=== PATIENT | female | born 1950 | race Caucasian/White ===

== ENCOUNTER → 2017-02-13 | Outpatient (CLI) | payer MEDICARE ==
[~2017-02-13] MED LIST: ALBU8.5H2 IH; ASPI81TA57 PO; CEFD300C3 PO; CEPH500C PO; DIAZ5TAB3 PO; ESCT10T PO; HYDR-1231 PO; HYDR-34 PO; HYDR-3583 PO; LEVO125T6 PO; LEVO137T24 PO; LVT.05T PO; MELO-195 PO; MIRA25TA PO; MULT-974 PO; OMEP20CA12 PO; QUET400T3 PO; QUET50TA43 PO; SIMV40TA4 PO; TRAM-21 PO; TRIA60LO6 TOP; levothroid PO
[2017-02-13 16:55] LABS: BILIRUBIN,URINE NEGATIVE (NEGATIVE); KETONES,URINE NEGATIVE (NEGATIVE); LEUKOCYTE ESTERASE ,URINE NEGATIVE (NEGATIVE); NITRITE,URINE NEGATIVE (NEGATIVE); PH,URINE 6.5 (5-9); PROTEIN,URINE NEGATIVE (NEGATIVE); UROBILINOGEN,URINE NORMAL (NORMAL)
[2017-02-13 17:03] LABS: SQUAMOUS EPITHELIAL CELL,UR 0-2 /HPF
== END ==
LOC: LABNPT 15:50
PROVIDERS: ATTEND Family Medicine
DX: N39.0 Urinary tract infection, site not specified (principal)
CPT/HCPCS: 81000; 87088

== ENCOUNTER 2017-03-04 17:54 | Emergency (ER) | payer MEDICARE ==
[~2017-03-04] VITALS: Ht 175.3 cm; Wt 88.5 kg
--- NOTE | 2017-03-04 18:13 | ED Fall/Injury ---
General Chief Complaint: Trauma-Non Activation Stated Complaint: FALL Source: EMS, custodial records, old records Exam Limitations: other (PT WITH DEMENTIA AND IS UNABLE TO GIVE ANY RELEVANT INFORMATION, BUT IS ABLE TO STATE IF SHE HURTS WHEN AN AREA IS PALPATED) History of Present Illness Time seen by provider: 17:55 Initial Comments PT ARRIVES VIA EMS FROM [facility]--NO REPORT FROM [facility] PT HAD AN UNWITNESSED FALL [facility] STAFF FOUND HER WITH SWELLING TO RIGHT CHEEK, AND PT WAS ALERT AND AT NORMAL BASELINE WHEN SHE WAS FOUND PT CURRENTLY HAVING DIARRHEA ON ARRIVAL NO REPORTED VOMITING NO OTHER INFORMATION IS OBTAINABLE PCP: DR. TEJEDA Allergies and Home Medications Allergies Coded Allergies: olanzapine (Verified Allergy, Unknown, 09/23/08) Home Medications Albuterol 8.5 Gm Hfa.aer.ad, 2 PUFF IH Q6H, #1 2 PUFFS Prescribed by: RAS VIDAL on 11/28/14 2335 Aspirin 81 Mg Tablet.dr, 81 MG PO DAILY, (Reported) Cefdinir 300 Mg Capsule, 1 EACH PO BID, #20 Prescribed by: RAS VIDAL on 11/28/14 2335 Cephalexin Monohydrate 500 Mg Capsule, 1 EACH PO TID, #21 Prescribed by: PERLA LUI on 08/22/14 1232 Diazepam 5 Mg Tablet, 5 MG PO TID, (Reported) Escitalopram Oxalate 10 Mg Tablet, 10 MG PO DAILY, (Reported) Meloxicam 15 Mg Tablet, 15 MG PO DAILY, (Reported) Mirabegron 25 Mg Tab.er.24h, 25 MG PO DAILY, #14 Prescribed by: DUDLEY SANTOS on 02/07/16 0419 Multivitamin 1 Each Tablet, 1 TAB PO DAILY, (Reported) Omeprazole 20 Mg Capsule.dr, 20 MG PO DAILY, (Reported) Quetiapine Fumarate 400 Mg Tab.sr.24h, 400 MG PO 1700, (Reported) Simvastatin 40 Mg Tablet, 40 MG PO HS, (Reported) Tramadol Hcl 50 Mg Tablet, 50 MG PO BID PRN for PAIN, (Reported) [levothroid] , 150 MCG PO DAILY, #30 Prescribed by: PERLA LUI on 08/22/14 1232 Constitutional: other (PER HPI) Past Hahedho-Epyvlu-Ujslwd Hx Patient Social History Alcohol Use: Denies Use Recreational Drug Use: No Smoking Status: Former Smoker Type Used: Cigarettes 2nd Hand Smoke Exposure: Yes (HER SMOKES, PT SMELLS OF SMOKE) Recent Hopitalizations: Yes (WRIST SURG) Immunizations Up To Date Date of Pneumonia Vaccine: Mar 04, 2014 Date of Influenza Vaccine: Apr 20, 2014 Seasonal Allergies Seasonal Allergies: No Surgeries HX Surgeries: Yes (HERNIA REPAIR) Surgeries: Abdominal Respiratory Hx Respiratory Disorders: Yes Respiratory Disorders: Chronic Bronchitis, COPD Cardiovascular Hx Cardiac Disorders: Yes Cardiac Disorders: High Cholesterol Neurological Hx Neurological Disorders: Yes (VASCULAR DEMENTIA) Neurological Disorders: Dementia, Developmental Disorder Reproductive System Hx Reproductive Disorders: No Sexually Transmitted Disease: No Genitourinary Hx Genitourinary Disorders: No Gastrointestinal Hx Gastrointestinal Disorders: Yes Gastrointestinal Disorders: Abdominal Hernia, Gastroesophageal Reflux, Chronic Constipation Musculoskeletal Hx Musculoskeletal Disorders: Yes (GENERALIZED WEAKNESS AND UNSTEADY GAIT) Musculoskeletal Disorders: Fractures Endocrine Hx Endocrine Disorders: Yes Endocrine Disorders: Hypothyroidsim HEENT HX ENT Disorders: No Cancer Hx Cancer: No Psychosocial Hx Psychiatric Problems: Yes (BIPOLAR, MENTALLY RETARDED) Behavioral Health Disorders: Sleep Difficulties, Bipolar, Depression Integumentary HX Skin/Integumentary Disorder: No Blood Transfusions Hx Blood Disorders: No Family Medical History Significant Family History: No Pertinent Family Hx Family Medial History: Patient reports no known family medical history. Physical Exam Vital Signs Vital Sign - Last 12Hours Capillary Refill : General Appearance: WD/WN, no apparent distress, other (APPEARS TO BE MENTALLY CHALLENGED WITH DEMENTIA) HEENT: PERRL/EOMI, other (POOR DENTITION; SWELLING, ERYTHEMA AND EARLY BRUSING , AND TENDERNESS TO RIGHT CHEEK) Neck: tender lateral, tender midline Cardiovascular: regular rate, rhythm, no murmur Respiratory: chest non-tender, normal breath sounds, no respiratory distress, no accessory muscle use Gastrointestinal: normal bowel sounds, non tender, soft, other (PT CURRENTLY WITH DIARRHEA) Extremities: normal capillary refill, swelling (TRACE EDEMA BILATERALLY), other (TENDERNESS TO BILATERAL HIPS AND THIGHS) Neurologic/Psychiatric: production line II-XII nml as tested, no motor/sensory deficits, alert, other (FLAT AFFECT. CONFUSED TO TIME, PLACE, SITUTATION, POOR MEMORY. APPEARS TO HAVE MR WITH DEMENTIA ) Skin: normal color, warm/dry Progress/Results/Core Measures Results/Orders Lab Results Laboratory Tests Test 03/04/17 19:34 Range/Units White Blood Count 9.7 4.3-11.0 10^3/uL Red Blood Count 4.35 4.35-5.85 10^6/uL Hemoglobin 13.1 11.5-16.0 G/DL Hematocrit 40 35-52 % Mean Corpuscular Volume 92 80-99 FL Mean Corpuscular Hemoglobin 30 25-34 PG Mean Corpuscular Hemoglobin Concent 33 32-36 G/DL Red Cell Distribution Width 13.8 10.0-14.5 % Platelet Count 286 130-400 10^3/uL Mean Platelet Volume 9.9 7.4-10.4 FL Neutrophils (%) (Auto) 70 42-75 % Lymphocytes (%) (Auto) 21 12-44 % Monocytes (%) (Auto) 8 0-12 % Eosinophils (%) (Auto) 2 0-10 % Basophils (%) (Auto) 0 0-10 % Neutrophils # (Auto) 6.8 1.8-7.8 X 10^3 Lymphocytes # (Auto) 2.0 1.0-4.0 X 10^3 Monocytes # (Auto) 0.8 0.0-1.0 X 10^3 Eosinophils # (Auto) 0.2 0.0-0.3 10^3/uL Basophils # (Auto) 0.0 0.0-0.1 10^3/uL Sodium Level 141 135-145 MMOL/L Potassium Level 3.4 L 3.6-5.0 MMOL/L Chloride Level 105 98-107 MMOL/L Carbon Dioxide Level 25 21-32 MMOL/L Anion Gap 11 5-14 MMOL/L Blood Urea Nitrogen 11 7-18 MG/DL Glucose Level 106 H 70-105 MG/DL Calcium Level 9.1 8.5-10.1 MG/DL Magnesium Level 1.9 1.8-2.4 MG/DL Total Bilirubin 0.3 0.1-1.0 MG/DL Aspartate Amino Transf (AST/SGOT) 14 5-34 U/L Alanine Aminotransferase (ALT/SGPT) 16 0-55 U/L Alkaline Phosphatase 116 40-136 U/L Total Protein 7.2 6.4-8.2 GM/DL Albumin 3.8 3.2-4.5 GM/DL My Orders Orders - RAS VIDAL DO Saline Lock/Iv-Start (03/04/17 18:05) Ct Head/Face/Cervical Wo (03/04/17 18:05) Ct Thoracic/Lumbar Spine Wo (03/04/17 18:05) Cbc With Automated Diff (03/04/17 18:05) Comprehensive Metabolic Panel (03/04/17 18:05) Magnesium (03/04/17 18:05) Thyroid Analyzer (03/04/17 18:05) Chest 1 View, Ap/Pa Only (03/04/17 18:05) Pelvis/Terence Hips 5> Views (03/04/17 18:05) Femur, Bilateral, 2 Views (03/04/17 18:05) Vital Signs/I&O Vital Sign - Last 12Hours 03/04/17 03/04/17 18:04 18:04 Pulse 86 78 Resp 14 14 B/P (MAP) 148/88 (108) 148/88 Pulse Ox 98 98 O2 Delivery Room Air Room Air Progress Note : Progress Note UNEVENTFUL ER STAY Diagnostic Imaging Comments CT HEAD/MAXILLOFACIAL/CERVICAL SPINE--NO ACUTE PROCESS, CHRONIC/DEGENERATIVE CHANGES CT THORACIC AND LUMBAR SPINE--NO ACUTE PROCESS, CHRONIC /DEGENERATIVE CHANGES PER RADIOLOGIST REPORTS @ 1917 XRAYS BILATERAL HIPS, FEMUR AND PELVIS--NO ACUTE PROCESS, PER RADIOLOGIST REPORTS @ 1947 Reviewed: Reviewed by Me Departure Impression Impression: Primary Impression: Status post fall Additional Impressions: RIGHT FACIAL CONTUSION Bilateral hip pain Cervical myofascial strain Disposition: 03 XFER SNF Condition: Stable Departure-Patient Inst. Referrals: ILA TEJEDA DO (PCP/Family) Primary Care Physician Patient Instructions: Cervical Muscle Strain (DC), Contusion (DC), Eye Contusion (DC), Hip Pain (DC), Hip Pain in Older People, Minor Head Injury (DC) , Preventing Falls in the Older Adult Add. Discharge Instructions: CONTINUE ALL MEDICATIONS PRESCRIBED ICE TO RIGHT CHEEK AT 20 MINUTE INTERVALS FOLLOW UP WITH DR. TEJEDA NEEDED All discharge instructions reviewed with patient and/or family. Voiced understanding. RAS VIDAL DO Mar 04, 2017 18:13
--- NOTE | 2017-03-04 18:40 | Diagnostic Imaging Report ---
PROCEDURE: CT head, face, and cervical spine without contrast. TECHNIQUE: Multiple contiguous axial images were obtained through the head, neck, and facial bones without the use of intravenous contrast. Sagittal and coronal reformations through the cervical spine and facial bones were also performed. INDICATION: Fall. Swelling on right cheek. COMPARISON: CT head without contrast 03/13/2016. FINDINGS: CT head and maxillofacial: No intracranial hemorrhage, mass effect, hydrocephalus or extra-axial fluid collections. No CT evidence of acute infarction. Moderate to advanced generalized cerebral and cerebellar parenchymal volume loss. Moderate leukoaraiosis. Intracranial vascular calcifications. No maxillofacial or skull fractures. The paranasal sinuses and mastoids are clear. Soft tissue edema overlying the right maxilla and zygoma. CT cervical spine: Normal alignment. Vertebral body heights are maintained. No fractures. No evidence of high-grade spinal canal narrowing on this noncontrast exam. Moderate degenerative endplate changes most marked at C4-C6. Carotid bifurcation arterial calcifications. Retropharyngeal course of the carotid arteries. IMPRESSION: No acute intracranial or cervical spine CT findings. No maxillofacial fractures. Dictated by: Dictated on workstation # [id number]
--- NOTE | 2017-03-04 19:13 | Diagnostic Imaging Report ---
EXAM: CT THORACIC/LUMBAR SPINE WO INDICATION: Fall. COMPARISON: CT thoracolumbar spine 08/13/2013. FINDINGS: Mild thoracolumbar scoliosis. Small cervical ribs at C7. There are 12 rib-bearing thoracic and 5 lumbar type vertebral bodies. Vertebral body heights are maintained. No fractures. Minimal scattered degenerative endplate changes. No evidence of substantial spinal canal narrowing on this noncontrast exam. No substantial neural foraminal narrowing. Scattered benign bone islands. No suspicious lytic or osteoblastic lesions. Scattered arterial calcifications including a normal caliber abdominal aorta. IMPRESSION: No significant change. No acute CT findings in the thoracolumbar spine. Dictated by: Dictated on workstation # [id number]
--- NOTE | 2017-03-04 19:17 | Diagnostic Imaging Report ---
EXAM: CHEST 1 VIEW, AP/PA ONLY INDICATION: Fall. COMPARISON: Chest radiograph 11/28/2014. FINDINGS: No significant change. Normal heart size and pulmonary vascularity. No focal pulmonary opacity, pleural effusion or pneumothorax. No acute osseous findings. IMPRESSION: No acute cardiopulmonary findings. Dictated by: Dictated on workstation # [id number]
--- NOTE | 2017-03-04 19:19 | Diagnostic Imaging Report ---
EXAM: PELVIS/PETE HIPS 5> VIEWS INDICATION: Fall. Bilateral femur and hip pain. COMPARISON: None. FINDINGS: No fracture or malalignment. No substantial degenerative changes. Soft tissue shadows are unremarkable. Nonspecific bowel gas pattern in the abdomen. IMPRESSION: No acute radiographic findings in the pelvis or hips. Dictated by: Dictated on workstation # [id number]
--- NOTE | 2017-03-04 19:21 | Diagnostic Imaging Report ---
EXAM: FEMUR, BILATERAL, 2 VIEWS INDICATION: Bilateral femur and hip pain. Fall. COMPARISON: None. FINDINGS: No fracture or malalignment. Soft tissue shadows are unremarkable. Moderate degenerative changes in both knees. IMPRESSION: No acute radiographic findings in the femurs. Dictated by: Dictated on workstation # [id number]
[2017-03-04 19:43] LABS: BASOPHILS % (AUTO) 0 % (0-10); EOSINOPHILS # (AUTO) 0.2 10^3/uL (0.0-0.3); EOSINOPHILS % (AUTO) 2 % (0-10); LYMPHOCYTES % (AUTO) 21 % (12-44); MEAN CORPUSCULAR HEMOGLOBIN 30 PG (25-34); MEAN CORPUSCULAR HGB CONC 33 G/DL (32-36); MEAN CORPUSCULAR VOLUME 92 FL (80-99); MEAN PLATELET VOLUME 9.9 FL (7.4-10.4); MONOCYTES # (AUTO) 0.8 X 10^3 (0.0-1.0); MONOCYTES % (AUTO) 8 % (0-12); NEUTROPHILS # (AUTO) 6.8 X 10^3 (1.8-7.8); NEUTROPHILS % (AUTO) 70 % (42-75); PLATELET COUNT 286 10^3/uL (130-400); RED BLOOD COUNT 4.35 10^6/uL (4.35-5.85); RED CELL DISTRIBUTION WIDTH 13.8 % (10.0-14.5); WHITE BLOOD COUNT 9.7 10^3/uL (4.3-11.0)
[2017-03-04 20:04] LABS: ALANINE AMINOTRANSFERASE 16 U/L (0-55); ALBUMIN 3.8 GM/DL (3.2-4.5); ANION GAP 11 MMOL/L (5-14); ASPARTATE AMINO TRANSFERASE 14 U/L (5-34); BILIRUBIN,TOTAL 0.3 MG/DL (0.1-1.0); BLOOD UREA NITROGEN 11 MG/DL (7-18); CALCIUM 9.1 MG/DL (8.5-10.1); CARBON DIOXIDE 25 MMOL/L (21-32); CHLORIDE 105 MMOL/L (98-107); GLUCOSE 106 MG/DL (70-105); MAGNESIUM 1.9 MG/DL (1.8-2.4); POTASSIUM 3.4 MMOL/L (3.6-5.0); SODIUM 141 MMOL/L (135-145); TOTAL PROTEIN 7.2 GM/DL (6.4-8.2)
[2017-03-04 20:34] LABS: BUN/CREATININE RATIO 13; CREATININE SERUM 0.84 MG/DL (0.60-1.30); GFR ESTIMATED > 60
[2017-03-04 21:11] VITALS: BP 148/88
== END 2017-03-04 21:00 ==
LOC: EDUNIT# 17:54 → ER 17:55
DX: S00.83XA Contusion of other part of head, initial encounter (principal); S16.1XXA Strain of muscle, fascia and tendon at neck level, initial encounter; M25.552 Pain in left hip; M25.551 Pain in right hip; J44.9 Chronic obstructive pulmonary disease, unspecified; F03.90 Unspecified dementia, unspecified severity, without behavioral disturbance, psychotic disturbance, mood disturbance, and anxiety; E78.00 Pure hypercholesterolemia, unspecified; K59.09 Other constipation; E03.9 Hypothyroidism, unspecified; F31.9 Bipolar disorder, unspecified; G47.9 Sleep disorder, unspecified; Z79.82 Long term (current) use of aspirin; Z87.891 Personal history of nicotine dependence; W19.XXXA Unspecified fall, initial encounter
CPT/HCPCS: 36415; 70450; 70486; 71010; 72125; 72128; 72131; 73523; 80053; 83735; 84439; 84443; 85025; 99283

== ENCOUNTER 2017-04-18 00:02 | Inpatient (IN) | payer MEDICARE ==
[2017-04-18] VITALS (22 sets, daily range): BP systolic 77–170; BP diastolic 45–93
[~2017-04-18] VITALS: Ht 162.6 cm; Wt 105.2 kg
[2017-04-18 00:26] LABS: BASOPHILS % (AUTO) 0 % (0-10); EOSINOPHILS # (AUTO) 0.2 10^3/uL (0.0-0.3); EOSINOPHILS % (AUTO) 2 % (0-10); LYMPHOCYTES # (AUTO) 2.1 X 10^3 (1.0-4.0); LYMPHOCYTES % (AUTO) 22 % (12-44); MEAN CORPUSCULAR HEMOGLOBIN 30 PG (25-34); MEAN CORPUSCULAR HGB CONC 33 G/DL (32-36); MEAN CORPUSCULAR VOLUME 93 FL (80-99); MEAN PLATELET VOLUME 10.3 FL (7.4-10.4); MONOCYTES # (AUTO) 0.5 X 10^3 (0.0-1.0); MONOCYTES % (AUTO) 5 % (0-12); NEUTROPHILS % (AUTO) 71 % (42-75); PLATELET COUNT 217 10^3/uL (130-400); RED CELL DISTRIBUTION WIDTH 13.5 % (10.0-14.5); WHITE BLOOD COUNT 9.9 10^3/uL (4.3-11.0)
--- NOTE | 2017-04-18 00:27 | ED Respiratory ---
General Chief Complaint: Respiratory Problems Stated Complaint: SOA Source: patient Exam Limitations: no limitations History of Present Illness Time seen by provider: 00:07 Initial Comments Here with report of respiratory difficulty at the long term. Her primary care doctor was contacted and requested transfer to the ER for further evaluation. There is concerns of pneumonia. Patient does not answer questions well and is a very poor historian. She arrives with breathing treatment in progress. Apparently initial O2 sat was in the mid 80s which did improve with higher flow oxygen and a DuoNeb. Report of recent fever and difficulty breathing. Patient denies any complaints although is clearly in respiratory distress and confused. Timing/Duration: this morning Severity: moderate Modifying Factors: Improves With Albuterol Nebulizer, Improves With Oxygen Associated Symptoms: fever/chills, shortness of breath, wheezing Allergies and Home Medications Allergies Coded Allergies: olanzapine (Verified Allergy, Unknown, 09/23/08) Home Medications Albuterol 8.5 Gm Hfa.aer.ad, 2 PUFF IH Q6H, #1 2 PUFFS Prescribed by: RAS VIDAL on 11/28/14 2335 Aspirin 81 Mg Tablet.dr, 81 MG PO DAILY, (Reported) Cefdinir 300 Mg Capsule, 1 EACH PO BID, #20 Prescribed by: RAS VIDAL on 11/28/14 2335 Cephalexin Monohydrate 500 Mg Capsule, 1 EACH PO TID, #21 Prescribed by: PERLA LUI on 08/22/14 1232 Diazepam 5 Mg Tablet, 5 MG PO TID, (Reported) Escitalopram Oxalate 10 Mg Tablet, 10 MG PO DAILY, (Reported) Meloxicam 15 Mg Tablet, 15 MG PO DAILY, (Reported) Mirabegron 25 Mg Tab.er.24h, 25 MG PO DAILY, #14 Prescribed by: DUDLEY SANTOS on 02/07/16 0419 Multivitamin 1 Each Tablet, 1 TAB PO DAILY, (Reported) Omeprazole 20 Mg Capsule.dr, 20 MG PO DAILY, (Reported) Quetiapine Fumarate 400 Mg Tab.sr.24h, 400 MG PO 1700, (Reported) Simvastatin 40 Mg Tablet, 40 MG PO HS, (Reported) Tramadol Hcl 50 Mg Tablet, 50 MG PO BID PRN for PAIN, (Reported) [levothroid] , 150 MCG PO DAILY, #30 Prescribed by: PERLA LUI on 08/22/14 1232 Constitutional: see HPI, fever Respiratory: see HPI, short of breath, wheezing Other Unable to complete review of systems due to patient's underlying mental status and clinical condition. Past Ozslkzw-Vnpmmp-Gmohjk Hx Patient Social History Alcohol Use: Denies Use Recreational Drug Use: No Smoking Status: Former Smoker Type Used: Cigarettes 2nd Hand Smoke Exposure: No Recent Hopitalizations: Yes (WRIST SURG) Immunizations Up To Date Date of Pneumonia Vaccine: Mar 04, 2014 Date of Influenza Vaccine: Apr 20, 2014 Seasonal Allergies Seasonal Allergies: No Surgeries History of Surgeries: Yes (HERNIA REPAIR) Surgeries: Abdominal Respiratory History of Respiratory Disorde: Yes Respiratory Disorders: Chronic Bronchitis, COPD Cardiovascular History of Cardiac Disorders: Yes Cardiac Disorders: High Cholesterol Neurological History of Neurological Disord: Yes Neurological Disorders: Dementia, Developmental Disorder Reproductive System Hx Reproductive Disorders: No Sexually Transmitted Disease: No Gastrointestinal History of Gastrointestinal Di: Yes Gastrointestinal Disorders: Abdominal Hernia, Gastroesophageal Reflux, Chronic Constipation Musculoskeletal History of Musculoskeletal Dis: Yes Musculoskeletal Disorders: Fractures Endocrine History of Endocrine Disorders: Yes Endocrine Disorders: Hypothyroidsim Cancer History of Cancer: No Psychosocial History of Psychiatric Problem: Yes (BIPOLAR, MENTALLY RETARDED) Behavioral Health Disorders: Sleep Difficulties, Bipolar, Depression Integumentary History of Skin or Integumenta: No Blood Transfusions History of Blood Disorders: No Reviewed Nursing Assessment Reviewed/Agree w Nursing PMH: Yes Family Medical History Significant Family History: No Pertinent Family Hx Family Medial History: Patient reports no known family medical history. Physical Exam Vital Signs Vital Sign - Last 12Hours 04/18/17 00:03 Temp 99.3 Pulse 83 Resp 20 B/P (MAP) 135/87 Pulse Ox 97 O2 Delivery Nasal Cannula O2 Flow Rate 2.00 Capillary Refill : General Appearance: WD/WN, mild distress (respiratory) HEENT: PERRL/EOMI, pharynx normal Neck: full range of motion, supple Respiratory: decreased breath sounds, crackles, wheezing, expiration Cardiovascular: regular rate, rhythm, no murmur Gastrointestinal: non tender, soft Extremities: non-tender, normal inspection Neurologic/Psychiatric: alert, disoriented x 3 Skin: normal color, warm/dry Focused Exam Evaluation Lactate Level Laboratory Tests 04/18/17 00:13: Lactic Acid Level 1.08 Lactic Acid Level Laboratory Tests Test 04/18/17 00:13 Lactic Acid Level 1.08 MMOL/L (0.50-2.00) Progress/Results/Core Measures Results/Orders Lab Results Laboratory Tests Test 04/18/17 00:13 04/18/17 00:41 Range/Units White Blood Count 9.9 4.3-11.0 10^3/uL Red Blood Count 4.60 4.35-5.85 10^6/uL Hemoglobin 13.9 11.5-16.0 G/DL Hematocrit 43 35-52 % Mean Corpuscular Volume 93 80-99 FL Mean Corpuscular Hemoglobin 30 25-34 PG Mean Corpuscular Hemoglobin Concent 33 32-36 G/DL Red Cell Distribution Width 13.5 10.0-14.5 % Platelet Count 217 130-400 10^3/uL Mean Platelet Volume 10.3 7.4-10.4 FL Neutrophils (%) (Auto) 71 42-75 % Lymphocytes (%) (Auto) 22 12-44 % Monocytes (%) (Auto) 5 0-12 % Eosinophils (%) (Auto) 2 0-10 % Basophils (%) (Auto) 0 0-10 % Neutrophils # (Auto) 7.0 1.8-7.8 X 10^3 Lymphocytes # (Auto) 2.1 1.0-4.0 X 10^3 Monocytes # (Auto) 0.5 0.0-1.0 X 10^3 Eosinophils # (Auto) 0.2 0.0-0.3 10^3/uL Basophils # (Auto) 0.0 0.0-0.1 10^3/uL Prothrombin Time 12.7 12.2-14.7 SEC INR Comment 0.9 0.8-1.4 Activated Partial Thromboplast Time 26 24-35 SEC Sodium Level 142 135-145 MMOL/L Potassium Level 4.0 3.6-5.0 MMOL/L Chloride Level 107 98-107 MMOL/L Carbon Dioxide Level 21 21-32 MMOL/L Anion Gap 14 5-14 MMOL/L Blood Urea Nitrogen 9 7-18 MG/DL Creatinine 0.87 0.60-1.30 MG/DL Estimat Glomerular Filtration Rate > 60 BUN/Creatinine Ratio 10 Glucose Level 128 H 70-105 MG/DL Lactic Acid Level 1.08 0.50-2.00 MMOL/L Calcium Level 9.4 8.5-10.1 MG/DL Total Bilirubin 0.5 0.1-1.0 MG/DL Aspartate Amino Transf (AST/SGOT) 22 5-34 U/L Alanine Aminotransferase (ALT/SGPT) 15 0-55 U/L Alkaline Phosphatase 79 40-136 U/L Total Protein 7.9 6.4-8.2 GM/DL Albumin 4.0 3.2-4.5 GM/DL Urine Color YELLOW Urine Clarity CLEAR Urine pH 6 5-9 Urine Specific [place] 1.015 L 1.016-1.022 Urine Protein NEGATIVE NEGATIVE Urine Glucose (UA) NEGATIVE NEGATIVE Urine Ketones NEGATIVE NEGATIVE Urine Nitrite NEGATIVE NEGATIVE Urine Bilirubin NEGATIVE NEGATIVE Urine Urobilinogen NORMAL NORMAL MG/DL Urine Leukocyte Esterase NEGATIVE NEGATIVE Urine RBC (Auto) NEGATIVE NEGATIVE Urine RBC NONE /HPF Urine WBC NONE /HPF Urine Squamous Epithelial Cells 0-2 /HPF Urine Crystals NONE /LPF Urine Bacteria NEGATIVE /HPF Urine Casts NONE /LPF Urine Mucus NEGATIVE /LPF Urine Culture Indicated NO My Orders Orders - EVER RANDLE MD Cbc With Automated Diff (04/18/17 00:20) Comprehensive Metabolic Panel (04/18/17 00:20) Lactic Acid Analyzer (04/18/17 00:20) Blood Culture (04/18/17 00:20) Sputum Culture (04/18/17 00:20) Ua Culture If Indicated (04/18/17 00:20) Protime With Inr (04/18/17 00:20) Partial Thromboplastin Time (04/18/17 00:20) Chest 1 View, Ap/Pa Only (04/18/17 00:20) O2 (04/18/17 00:20) Saline Lock/Iv-Start (04/18/17 00:20) Ekg Tracing (04/18/17 00:20) Vital Signs Adult Sepsis Patie Q1HR (04/18/17 00:20) Remove Rings In Anticipation O (04/18/17 00:20) Methylprednisolone Sod Succ (Solu-Medrol (04/18/17 01:42) Levofloxacin 750 Mg/150 Ml Iv (Levaquin (04/18/17 01:42) Vital Signs/I&O Vital Sign - Last 12Hours 04/18/17 04/18/17 00:03 00:08 Temp 99.3 Pulse 83 Resp 20 B/P (MAP) 135/87 Pulse Ox 97 97 O2 Delivery Nasal Cannula Nasal Cannula O2 Flow Rate 2.00 2.00 Progress Note : Progress Note Seen and evaluated. IV, labs, EKG and chest x-ray ordered. 02 continued. Patient did pull her IV after arrival from EMS. IV restarted. Blood cultures and lactic acid obtained. Monitor patient. 0200: Labs reviewed and chest x- ray reviewed. Question of right basilar infiltrate. Given the patient's baseline status and acute worsening tonight, patient would benefit from inpatient admission for IV antibiotics and monitoring. This was discussed with Dr. Tejeda who agrees. Patient to be admitted inpatient status. ECG Initial ECG Impression Date: Apr 18, 2017 Initial ECG Impression Time: 00:11 Initial ECG Rate: 84 Initial ECG Rhythm: Normal Sinus Comment Sinus rhythm with left ventricular hypertrophy. Left axis deviation. LVH and left axis deviation from 08/19/14. No evidence of ST elevation WI. Interpreted by me. Diagnostic Imaging Diagonstic Imaging: Xray Plain Films/CT/US/NM/MRI: chest Comments Right basilar infiltrate Reviewed: Reviewed by Me (a thyroid thank you) Departure Communication (Admissions) Time/Spoke to Admitting Phy: 02:00 Impression Impression: Primary Impression: Right lower lobe pneumonia Qualified Codes: J18.1 - Lobar pneumonia, unspecified organism Disposition: ADMITTED INPATIENT Condition: Stable Admissions Decision to Admit Reason: Admit from ER (General) Decision to Admit/Date: Apr 18, 2017 Time/Decision to Admit Time: 02:00 Departure-Patient Inst. Referrals: ILA TEJEDA DO (PCP/Family) Primary Care Physician EVER RANDLE MD Apr 18, 2017 00:27
[2017-04-18 00:31] LABS: INR 0.9 (0.8-1.4); PROTHROMBIN TIME PATIENT 12.7 SEC (12.2-14.7)
[2017-04-18 00:39] LABS: ALANINE AMINOTRANSFERASE 15 U/L (0-55); ANION GAP 14 MMOL/L (5-14); ASPARTATE AMINO TRANSFERASE 22 U/L (5-34); BILIRUBIN,TOTAL 0.5 MG/DL (0.1-1.0); BLOOD UREA NITROGEN 9 MG/DL (7-18); BUN/CREATININE RATIO 10; CALCIUM 9.4 MG/DL (8.5-10.1); CARBON DIOXIDE 21 MMOL/L (21-32); CHLORIDE 107 MMOL/L (98-107); CREATININE SERUM 0.87 MG/DL (0.60-1.30); GFR ESTIMATED > 60; GLUCOSE 128 MG/DL (70-105); SODIUM 142 MMOL/L (135-145); TOTAL PROTEIN 7.9 GM/DL (6.4-8.2)
[2017-04-18 00:49] LABS: BILIRUBIN,URINE NEGATIVE (NEGATIVE); KETONES,URINE NEGATIVE (NEGATIVE); LEUKOCYTE ESTERASE ,URINE NEGATIVE (NEGATIVE); NITRITE,URINE NEGATIVE (NEGATIVE); PH,URINE 6 (5-9); PROTEIN,URINE NEGATIVE (NEGATIVE); UROBILINOGEN,URINE NORMAL (NORMAL)
[2017-04-18 01:29] LABS: SQUAMOUS EPITHELIAL CELL,UR 0-2 /HPF
[2017-04-18] MEDS ORDERED: LEVOFLOXACIN 750 MG/150 ML IV 150 ML IV STA (01:42)
[2017-04-18] MEDS ORDERED: methylPREDNISolone 125 MG (Solu-MEDROL) VIAL IV STA (01:42)
[2017-04-18] MEDS ORDERED: NS IV 1000 ML 1,000 ML ONE (03:03)
[2017-04-18] MEDS ORDERED: RT-ALBUTEROL/IPRATROPIUM 3 ML (DUONEB) VIAL INH PRN (04:00)
[2017-04-18] MEDS: CEFEPIME INJECTION 2,000 MG in NS (IVPB) 50 ML IV SCH ×2 (04:40→09:09)
--- NOTE | 2017-04-18 06:25 | Diagnostic Imaging Report ---
INDICATION: Fall. Comparison is made to the examination of 03/04/2017. FINDINGS: Heart size and pulmonary vascularity are within normal limits. There is suggestion of an approximately 1.5 cm nodular structure along the superior margin of the left hilum. This was not definitely seen on the previous study. There is no evidence of pneumothorax or consolidation. IMPRESSION: 1.5 cm nodular density in the left suprahilar region could be due to superimposed vascular structures, although followup PA and lateral views of the chest would be useful to exclude pulmonary nodule. Dictated by: Dictated on workstation # [id number]
[2017-04-18 06:41] LABS: BASOPHILS % (AUTO) 0 % (0-10); EOSINOPHILS % (AUTO) 0 % (0-10); LYMPHOCYTES # (AUTO) 0.6 X 10^3 (1.0-4.0); LYMPHOCYTES % (AUTO) 4 % (12-44); MEAN CORPUSCULAR HEMOGLOBIN 30 PG (25-34); MEAN CORPUSCULAR HGB CONC 32 G/DL (32-36); MEAN CORPUSCULAR VOLUME 93 FL (80-99); MEAN PLATELET VOLUME 10.4 FL (7.4-10.4); MONOCYTES # (AUTO) 0.2 X 10^3 (0.0-1.0); MONOCYTES % (AUTO) 1 % (0-12); NEUTROPHILS % (AUTO) 95 % (42-75); PLATELET COUNT 218 10^3/uL (130-400); RED BLOOD COUNT 4.58 10^6/uL (4.35-5.85); RED CELL DISTRIBUTION WIDTH 13.2 % (10.0-14.5); WHITE BLOOD COUNT 15.7 10^3/uL (4.3-11.0)
[2017-04-18 07:02] LABS: ALANINE AMINOTRANSFERASE 13 U/L (0-55); ANION GAP 14 MMOL/L (5-14); ASPARTATE AMINO TRANSFERASE 13 U/L (5-34); BILIRUBIN,TOTAL 0.6 MG/DL (0.1-1.0); BLOOD UREA NITROGEN 8 MG/DL (7-18); BUN/CREATININE RATIO 10; CALCIUM 9.2 MG/DL (8.5-10.1); CARBON DIOXIDE 20 MMOL/L (21-32); CHLORIDE 107 MMOL/L (98-107); GFR ESTIMATED > 60; GLUCOSE 147 MG/DL (70-105); POTASSIUM 3.5 MMOL/L (3.6-5.0); SODIUM 141 MMOL/L (135-145); TOTAL PROTEIN 7.5 GM/DL (6.4-8.2)
[2017-04-18] MEDS ORDERED: FUROSEMIDE 40 MG/4 ML INJ (LASIX) ONE (07:24)
[2017-04-18 07:43] LABS: ABG BASE EXCESS -2.4 MMOL/L (-2.5-2.5); ABG HCO3 23 MMOL/L (23-27); ABG OXYGEN SATURATION 92 % (94-100); ABG PCO2 54 MMHG (35-45); ABG PO2 75 MMHG (79-93)
[2017-04-18] MEDS ORDERED: FUROSEMIDE 40 MG/4 ML INJ (LASIX) IVP NR (07:45)
[2017-04-18 07:46] LABS: ABG PH 7.27 (7.37-7.43)
[2017-04-18 07:47] LABS: ALLENS TEST YES-POS
--- NOTE | 2017-04-18 07:52 | Pulmonary Consultation ---
History of Present Illness History of Present Illness Date of Consultation 04/18/17 07:49 Time Seen by Provider: 07:52 Date of Admission History of Present Illness 66yo poor historian presented to ED from [facility] secondary to progressive SOB and hypoxia. No prior episodes like this. Pt was admitted to 4th floor and throughout the night she became more SOB and course rhonchi. I was called to room stat secondary to acute worsening SOB. Allergies and Home Medications Allergies Coded Allergies: olanzapine (Verified Allergy, Unknown, 09/23/08) Home Medications Cholecalciferol (Vitamin D3) 1,000 Unit Capsule, 2,000 UNIT PO DAILY, (Reported) TAKES 2 (1000 UNIT) CAPSULES Clonazepam 0.5 Mg Tablet, 0.5 MG PO TID, (Reported) Escitalopram Oxalate 10 Mg Tablet, 10 MG PO DAILY, (Reported) Lactulose 20 Gm/30 Ml Solution, 30 ML PO BID, (Reported) Levothyroxine Sodium 150 Mcg Tablet, 150 MCG PO DAILY, (Reported) Lurasidone HCl 40 Mg Tablet, 40 MG PO BID, (Reported) Magnesium Hydroxide 400 Mg/5 Ml Oral.susp, 30 ML PO DAILY PRN for CONSTIPATION- 7TH LINE, (Reported) Melatonin 3 Mg Tablet, 3 MG PO HS, (Reported) Memantine HCl 5 Mg Tablet, 5 MG PO BID, (Reported) Rivastigmine 4.6 Mg Patch, 4.6 MG TD DAILY, (Reported) Simvastatin 40 Mg Tablet, 40 MG PO 1700, (Reported) Topiramate 100 Mg Tablet, 100 MG PO BID, (Reported) Trazodone HCl 50 Mg Tablet, 50 MG PO HS, (Reported) Past Pndcitr-Alzmzy-Gblmlk Hx Patient Social History Alcohol Use: Denies Use Recreational Drug Use: No Smoking Status: Former Smoker Type Used: Cigarettes 2nd Hand Smoke Exposure: No Recent Foreign Travel: No Contact w/Someone Who Travel: No Recent Infectious Disease Expo: No Recent Hopitalizations: Yes (WRIST SURG) Physical Abuse: No Sexual Abuse: No Mistreated: No Fear: No Immunizations Up To Date PED Vaccines UTD: Yes Date of Pneumonia Vaccine: Feb 02, 2014 Date of Influenza Vaccine: Apr 20, 2014 Seasonal Allergies Seasonal Allergies: No Surgeries History of Surgeries: Yes (HERNIA REPAIR) Surgeries: Abdominal Respiratory History of Respiratory Disorde: Yes Respiratory Disorders: Chronic Bronchitis, COPD Cardiovascular History of Cardiac Disorders: No Cardiac Disorders: High Cholesterol Neurological History of Neurological Disord: Yes Neurological Disorders: Dementia, Developmental Disorder Reproductive System : No Hx Reproductive Disorders: No Sexually Transmitted Disease: No HIV/AIDS: No Genitourinary History of Genitourinary Disor: No Gastrointestinal History of Gastrointestinal Di: Yes Gastrointestinal Disorders: Abdominal Hernia, Gastroesophageal Reflux, Chronic Constipation Musculoskeletal History of Musculoskeletal Dis: Yes Musculoskeletal Disorders: Fractures Endocrine History of Endocrine Disorders: Yes Endocrine Disorders: Hypothyroidsim HEENT History of HEENT Disorders: No Cancer History of Cancer: No Psychosocial History of Psychiatric Problem: Yes (BIPOLAR, MENTALLY RETARDED) Behavioral Health Disorders: Sleep Difficulties, Bipolar, Depression Suicide Risk Score: 0 Integumentary History of Skin or Integumenta: No Blood Transfusions History of Blood Disorders: No Adverse Reaction to a Blood Tr: No Reviewed Nursing Assessment Reviewed/Agree w Nursing PMH: Yes Family Medical History Significant Family History: No Pertinent Family Hx Family Medial History: Patient reports no known family medical history. Review of Systems Time Seen by Provider: 07:49 Exam Exam Vital Signs Date Time Temp Pulse Resp B/P (MAP) Pulse Ox O2 Delivery O2 Flow Rate FiO2 04/18/17 06:29 92 Nasal Cannula 2.00 04/18/17 04:34 98.8 04/18/17 03:49 97 04/18/17 03:46 83 97 2 04/18/17 03:22 Nasal Cannula 2.00 04/18/17 03:00 99.4 81 20 131/63 93 2.00 04/18/17 02:49 82 20 94 Nasal Cannula 2.00 04/18/17 00:08 97 Nasal Cannula 2.00 04/18/17 00:03 99.3 83 20 135/87 97 Nasal Cannula 2.00 General Appearance: Anxious, Severe Distress HEENT: PERRL/EOMI, Pharynx Normal Neck: Full Range of Motion, Normal Inspection, Non Tender, Supple Respiratory: Accessory Muscle Use, Decreased Breath Sounds, Rhonci Cardiovascular: No Gallop, No JVD, Tachycardia Capillary Refill: Less Than 3 Seconds Gastrointestinal: normal bowel sounds, non tender, soft Extremity: Normal Capillary Refill, Normal Inspection Neurologic/Psychiatric: Alert, Oriented x3 Skin: Normal Color, Warm/Dry Lymphatic: No Adenopathy Results Lab Laboratory Tests 04/18/17 00:13 04/18/17 05:50 Assessment/Plan Assessment/Plan -Acute respiratory failure with probable flash pulmonary edema -BiPAP -stat ABG check troponins, EKG -transfer to ICU -BNP -lasix 40 mg IV X 1 255 Clinical Quality Measures DVT/VTE Risk/Contraindication: Risk Factor Score Per Nursin RFS Level Per Nursing on Admit: 4+=Very High SAI GUAMAN DO Apr 18, 2017 07:52
[2017-04-18] MEDS ORDERED: POTASSIUM CL 10MEQ/50ML IVPB 50 ML IV NR (08:15)
--- NOTE | 2017-04-18 08:16 | History & Physicial ---
History of Present Illness History of Present Illness Reason for visit/HPI [facility]. Patient had sudden problem of breathing. Pulse ox 1 into the 80s. Patient transferred to emergency room. Patient appears to have pneumonia. Seen patient this morning respiratory distress. Patient given Lasix and transferred to intensive care unit and pulmonology consult. Patient has dementia and unable to give a history Patient also has psychiatric problems Date of Admission Apr 18, 2017 at 02:00 Time Seen by Provider: 08:10 I consulted on this patient on 04/18/17 08:12 Attending Physician Ila Tejeda DO Admitting Physician Ila Tejeda DO Consult Allergies and Home Medications Allergies Coded Allergies: olanzapine (Verified Allergy, Unknown, 09/23/08) Home Medications Albuterol 8.5 Gm Hfa.aer.ad, 2 PUFF IH Q6H, #1 2 PUFFS Prescribed by: RAS VIDAL on 11/28/14 2335 Aspirin 81 Mg Tablet.dr, 81 MG PO DAILY, (Reported) Cefdinir 300 Mg Capsule, 1 EACH PO BID, #20 Prescribed by: RAS VIDAL on 11/28/14 2335 Cephalexin Monohydrate 500 Mg Capsule, 1 EACH PO TID, #21 Prescribed by: PERLA LUI on 08/22/14 1232 Diazepam 5 Mg Tablet, 5 MG PO TID, (Reported) Escitalopram Oxalate 10 Mg Tablet, 10 MG PO DAILY, (Reported) Meloxicam 15 Mg Tablet, 15 MG PO DAILY, (Reported) Mirabegron 25 Mg Tab.er.24h, 25 MG PO DAILY, #14 Prescribed by: DUDLEY SANTOS on 02/07/16 0419 Multivitamin 1 Each Tablet, 1 TAB PO DAILY, (Reported) Omeprazole 20 Mg Capsule.dr, 20 MG PO DAILY, (Reported) Quetiapine Fumarate 400 Mg Tab.sr.24h, 400 MG PO 1700, (Reported) Simvastatin 40 Mg Tablet, 40 MG PO HS, (Reported) Tramadol Hcl 50 Mg Tablet, 50 MG PO BID PRN for PAIN, (Reported) [levothroid] , 150 MCG PO DAILY, #30 Prescribed by: PERLA LUI on 08/22/14 1232 Past Valzhjz-Kmvqsr-Zexeyw Hx Patient Social History Marrital Status: Employed/Student: unemployed Alcohol Use: Denies Use Recreational Drug Use: No Smoking Status: Former Smoker Type Used: Cigarettes 2nd Hand Smoke Exposure: No Physical Abuse Screen: No Sexual Abuse: No Recent Foreign Travel: No Contact w/other who traveled: No Recent Hopitalizations: Yes (WRIST SURG) Recent Infectious Disease Expo: No Immunizations Up To Date Pediatric: Yes Date of Pneumonia Vaccine: Feb 02, 2014 Date of Influenza Vaccine: Apr 20, 2014 Seasonal Allergies Seasonal Allergies: No Surgeries Yes (HERNIA REPAIR) Abdominal Respiratory Yes Cardiovascular No High Cholesterol Neurological Yes Dementia, Developmental Disorder Reproductive System : No Hx Reproductive Disorders: No Sexually Transmitted Disease: No HIV/AIDS: No Genitourinary No Gastrointestinal Yes Abdominal Hernia, Gastroesophageal Reflux, Chronic Constipation Musculoskeletal Yes Fractures Endocrine History of Endocrine Disorders: Yes Endocrine Disorders: Hypothyroidsim HEENT History of HEENT Disorders: No Cancer No Psychosocial History of Psychiatric Problem: Yes (BIPOLAR, MENTALLY RETARDED) Behavioral Health Disorders: Sleep Difficulties, Bipolar, Depression Integumentary History of Skin or Integumenta: No Blood Transfusions History of Blood Disorders: No Adverse Reaction to a Blood Tr: No Reviewed Nursing Assessment Reviewed/Agree w Nursing PMH: Yes Family Medical History Significant Family History: No Pertinent Family Hx Other Significan Family Hx: PT UNABLE TO REPORT ANY FAMILY HISTORY Family Hx: Patient reports no known family medical history. Constitutional: other (order breath) EENTM: no symptoms reported Respiratory: short of breath, wheezing Cardiovascular: no symptoms reported Gastrointestinal: no symptoms reported Physical Exam Vital Signs Vital Sign - Last 12Hours 04/18/17 04/18/17 00:03 03:46 Temp 99.3 Pulse 83 Resp 20 B/P (MAP) 135/87 Pulse Ox 97 O2 Delivery Nasal Cannula O2 Flow Rate 2.00 FiO2 2 Capillary Refill : Less Than 3 Seconds General Appearance: Moderate Distress, Other (transferred to ICU) Eyes: Bilateral Eye Normal Inspection HEENT: Normal ENT Inspection Neck: Normal Inspection Respiratory: Crackles, Decreased Breath Sounds, Respiratory Distress Cardiovascular: Regular Rate, Rhythm, No Murmur Gastrointestinal: Non Tender, Soft Assessment/Plan Assessment and Plan acute respiratory failure with probable flash pulmonary edema. Dementia. Bipolar. Patient unable to give a good history Problems: Clinical Quality Measures DVT/VTE Risk/Contraindication: Risk Factor Score Per Nursin RFS Level Per Nursing on Admit: 4+=Very High ILA TEJEDA DO Apr 18, 2017 08:16
--- NOTE | 2017-04-18 08:31 | Diagnostic Imaging Report ---
Clinical indication: Patient with history of increased shortness of breath. Patient right basilar pneumonia. Patient moved to ICU now. Exam: Portable chest x-ray upright view. Comparison: Portable chest x-ray dated 04/18/2017 at 1233 hrs. Findings: There is slight improved aeration of both lungs compared to prior study. There is interval mild left lung base atelectasis. The 1.5 cm nodular area in the left suprahilar region is seen and may have just represented confluence of shadows from the pulmonary vasculature. There is no pleural effusion or pneumothorax. Pulmonary vasculature and cardiac silhouette is within normal limits. The remainder of this exam shows no significant interval change compared to the prior study of comparison. Impression: 1: There is interval minimal left lung base atelectasis. Otherwise, there is no radiographic evidence of acute cardiopulmonary process. 2: The previously seen 1.5 cm superior hilar nodular area appears to represent vascular structures more so than a nodule. 3: The remainder of this exam shows no significant interval change compared to the prior study of comparison. Dictated by: Dictated on workstation # [id number]
[2017-04-18] MEDS ORDERED: RT-ALBUTEROL/IPRATROPIUM 3 ML (DUONEB) VIAL INH SCH (09:00)
[2017-04-18] MEDS ORDERED: PIPERACILLIN/TAZO 4.5 GM VIAL (ZOSYN) IV ONE (09:10)
[2017-04-18] MEDS ORDERED: NS (IVPB) 100 ML ONE (09:10)
[2017-04-18] MEDS ORDERED: PIPERACILLIN SODIUM/TAZOBACTAM 4.5 GM in NS (IVPB) 100 ML IV NR (09:15)
[2017-04-18] MEDS: ENOXAPARIN 40 MG/0.4 ML (LOVENOX) SYR SC SCH (09:33)
[2017-04-18] MEDS: FAMOTIDINE 20MG/2ML IV (PEPCID) IVP SCH (09:33)
[2017-04-18] MEDS: NS IV 1000 ML 1,000 ML IV SCH ×2 (09:33→19:07)
[2017-04-18 09:59] LABS: BILIRUBIN,URINE NEGATIVE (NEGATIVE); KETONES,URINE NEGATIVE (NEGATIVE); LEUKOCYTE ESTERASE ,URINE 1+ (NEGATIVE); NITRITE,URINE NEGATIVE (NEGATIVE); PH,URINE 5 (5-9); PROTEIN,URINE NEGATIVE (NEGATIVE); UROBILINOGEN,URINE NORMAL (NORMAL)
[2017-04-18 10:20] LABS: WBC,URINE RARE /HPF
[2017-04-18] MEDS: RT-ALBUTEROL/IPRATROPIUM 3 ML (DUONEB) VIAL INH SCH ×3 (10:31→19:09)
[2017-04-18] MEDS ORDERED: MEMA5TAB16 PO (11:25)
[2017-04-18] MEDS ORDERED: RIVA1PAT TD (11:25)
[2017-04-18] MEDS ORDERED: LURA40TA3 PO (11:25)
[2017-04-18] MEDS ORDERED: LEVO150T6 PO (11:25)
[2017-04-18] MEDS ORDERED: MAGN400O7 PO (11:25)
[2017-04-18] MEDS ORDERED: CLON0.5T PO (11:25)
[2017-04-18] MEDS ORDERED: TOPI100T PO (11:25)
[2017-04-18] MEDS ORDERED: LACT20SO2 PO (11:25)
[2017-04-18] MEDS ORDERED: CHOL10007 PO (11:25)
[2017-04-18] MEDS ORDERED: TRAZ-28 PO (11:25)
[2017-04-18] MEDS ORDERED: MELA3TAB PO (11:25)
[2017-04-18] MEDS: PIPERACILLIN SODIUM/TAZOBACTAM 4.5 GM in NS (IVPB) 100 ML IV SCH (15:56)
[2017-04-19] VITALS (19 sets, daily range): BP systolic 90–140; BP diastolic 44–92
[2017-04-19] MEDS: PIPERACILLIN SODIUM/TAZOBACTAM 4.5 GM in NS (IVPB) 100 ML IV SCH ×4 (00:02→23:21)
[2017-04-19] MEDS ORDERED: LEVOFLOXACIN 750 MG/150 ML IV 150 ML IV SCH (03:00)
[2017-04-19 05:38] LABS: BASOPHILS % (AUTO) 0 % (0-10); EOSINOPHILS # (AUTO) 0.1 10^3/uL (0.0-0.3); EOSINOPHILS % (AUTO) 1 % (0-10); LYMPHOCYTES # (AUTO) 1.3 X 10^3 (1.0-4.0); LYMPHOCYTES % (AUTO) 12 % (12-44); MEAN CORPUSCULAR HEMOGLOBIN 30 PG (25-34); MEAN CORPUSCULAR HGB CONC 32 G/DL (32-36); MEAN CORPUSCULAR VOLUME 93 FL (80-99); MEAN PLATELET VOLUME 10.4 FL (7.4-10.4); MONOCYTES # (AUTO) 0.8 X 10^3 (0.0-1.0); MONOCYTES % (AUTO) 8 % (0-12); NEUTROPHILS # (AUTO) 8.6 X 10^3 (1.8-7.8); NEUTROPHILS % (AUTO) 80 % (42-75); PLATELET COUNT 195 10^3/uL (130-400); RED BLOOD COUNT 3.95 10^6/uL (4.35-5.85); RED CELL DISTRIBUTION WIDTH 13.3 % (10.0-14.5); WHITE BLOOD COUNT 10.7 10^3/uL (4.3-11.0)
[2017-04-19 05:58] LABS: ANION GAP 9 MMOL/L (5-14); BLOOD UREA NITROGEN 11 MG/DL (7-18); BUN/CREATININE RATIO 14; CALCIUM 8.6 MG/DL (8.5-10.1); CARBON DIOXIDE 23 MMOL/L (21-32); CHLORIDE 111 MMOL/L (98-107); GFR ESTIMATED > 60; GLUCOSE 107 MG/DL (70-105); MAGNESIUM 1.7 MG/DL (1.8-2.4); PHOSPHORUS 3.4 MG/DL (2.3-4.7); POTASSIUM 3.4 MMOL/L (3.6-5.0); SODIUM 143 MMOL/L (135-145)
[2017-04-19] MEDS ORDERED: POTASSIUM CL 10MEQ/50ML IVPB 50 ML IV SCH (06:00)
[2017-04-19] MEDS ORDERED: KCL 20 MEQ TAB (K-DUR) PO SCH (06:00)
[2017-04-19] MEDS ORDERED: MAGNESIUM 1 GM/100 ML IVPB 100 ML IV SCH (06:00)
[2017-04-19] MEDS ORDERED: KCL 20 MEQ TAB (K-DUR) PO NR (06:15)
[2017-04-19] MEDS: MAGNESIUM 1 GM/100 ML IVPB 100 ML IV SCH ×2 (06:37→08:40)
[2017-04-19] MEDS: RT-ALBUTEROL/IPRATROPIUM 3 ML (DUONEB) VIAL INH SCH ×5 (06:42→22:56)
--- NOTE | 2017-04-19 07:34 | Progress Note (SOAP) ---
Subjective Time Seen by Provider: 07:30 Subjective/Events-last exam patient doing much better today. Patient not on BiPAP. Patient not in any distress with breathing. To have speech evaluation for aspiration. Respiratory failure better. Alzheimer's. Bipolar. Patient in the right direction Objective Exam Vital Signs Date Time Temp Pulse Resp B/P (MAP) Pulse Ox O2 Delivery O2 Flow Rate FiO2 04/19/17 06:42 97 Nasal Cannula 2.00 04/19/17 06:00 73 27 107/71 96 NIV Bilevel 30.00 04/19/17 05:00 68 21 134/92 96 NIV Bilevel 30.00 04/19/17 04:00 59 19 94/44 95 NIV Bilevel 30.00 04/19/17 03:00 77 27 110/59 92 NIV Bilevel 30.00 04/19/17 02:00 76 16 116/71 93 NIV Bilevel 30.00 04/19/17 01:00 71 20 112/67 97 NIV Bilevel 30.00 04/19/17 01:00 71 04/19/17 00:00 95 Nasal Cannula 3.00 04/19/17 00:00 99.1 04/19/17 00:00 77 20 117/72 95 NIV Bilevel 30.00 04/18/17 23:00 78 23 112/88 95 NIV Bilevel 30.00 04/18/17 22:19 95 Nasal Cannula 3.50 04/18/17 22:00 79 19 122/45 96 NIV Bilevel 30.00 04/18/17 21:00 80 18 119/63 87 NIV Bilevel 30.00 04/18/17 20:00 99.9 04/18/17 20:00 94 Nasal Cannula 4.00 04/18/17 20:00 89 24 122/58 NIV Bilevel 30.00 04/18/17 19:09 94 Nasal Cannula 3.00 04/18/17 19:00 94 22 125/60 98 NIV Bilevel 30.00 04/18/17 19:00 95 04/18/17 18:00 98 19 111/79 97 NIV Bilevel 30.00 04/18/17 17:00 97 24 111/76 NIV Bilevel 30.00 04/18/17 16:43 98.2 NIV Bilevel 30.00 04/18/17 16:42 96 NIV Bilevel 30 04/18/17 16:00 100 24 124/74 94 NIV Bilevel 40.00 04/18/17 15:00 97 22 124/84 91 NIV Bilevel 40.00 04/18/17 14:27 87 25 94 40.00 04/18/17 14:00 89 27 92 NIV Bilevel 40.00 04/18/17 13:00 97 04/18/17 13:00 97 26 110/64 96 NIV Bilevel 40.00 04/18/17 12:45 99.7 NIV Bilevel 40.00 04/18/17 12:20 99.7 NIV Bilevel 40.00 04/18/17 12:20 97 NIV Bilevel 40 04/18/17 12:14 85 22 97 40.00 04/18/17 12:00 91 25 128/57 95 NIV Bilevel 40.00 04/18/17 11:00 92 26 131/68 94 NIV Bilevel 40.00 04/18/17 10:31 93 24 94 40.00 04/18/17 10:00 95 26 138/67 94 NIV Bilevel 40.00 04/18/17 10:00 NIV Bilevel 40.00 04/18/17 09:35 95 27 96 60.00 04/18/17 09:00 11 28 138/78 97 NIV Bilevel 40.00 04/18/17 08:31 110 04/18/17 08:15 107 28 140/93 97 NIV Bilevel 40.00 04/18/17 08:05 98.4 NIV Bilevel 60.00 04/18/17 08:05 98.4 NIV Bilevel 60.00 04/18/17 08:05 97 NIV Bilevel 60 04/18/17 07:54 111 27 97 80.00 Capillary Refill : Less Than 3 Seconds General Appearance: No Apparent Distress, WD/WN HEENT: Normal ENT Inspection Neck: Full Range of Motion, Normal Inspection Respiratory: No Accessory Muscle Use, No Respiratory Distress, Decreased Breath Sounds, Other (loose congestion) Cardiovascular: Regular Rate, Rhythm, No Murmur Gastrointestinal: non tender, soft Results Lab Laboratory Tests 04/18/17 07:38: Blood Gas Puncture Site LT RAD, Blood Gas Patient Temperature 100.0, Arterial Blood pH 7.27*L, Arterial Blood Partial Pressure CO2 54H, Arterial Blood Partial Pressure O2 75L, Arterial Blood HCO3 23, Arterial Blood Total CO2 25.0, Arterial Blood Oxygen Saturation 92L, Arterial Blood Base Excess -2.4, Moris Test YES-POS, Blood Gas Ventilator Setting NO, Blood Gas Inspired Oxygen 15 04/18/17 09:50: Urine Color YELLOW, Urine Clarity CLEAR, Urine pH 5, Urine Specific [place] 1.015L, Urine Protein NEGATIVE, Urine Glucose (UA) NEGATIVE, Urine Ketones NEGATIVE, Urine Nitrite NEGATIVE, Urine Bilirubin NEGATIVE, Urine Urobilinogen NORMAL, Urine Leukocyte Esterase 1+H, Urine RBC (Auto) 4+H, Urine RBC 2-5H, Urine WBC RARE, Urine Squamous Epithelial Cells NONE, Urine Crystals NONE, Urine Bacteria NEGATIVE, Urine Casts PRESENT, Urine Hyaline Casts 2-5H, Urine Mucus NEGATIVE, Urine Culture Indicated NO 04/18/17 11:38: Troponin I < 0.30 04/18/17 18:10: Troponin I < 0.30 04/19/17 00:30: Troponin I < 0.30 04/19/17 05:29: White Blood Count 10.7, Red Blood Count 3.95L, Hemoglobin 11.8, Hematocrit 37, Mean Corpuscular Volume 93, Mean Corpuscular Hemoglobin 30, Mean Corpuscular Hemoglobin Concent 32, Red Cell Distribution Width 13.3, Platelet Count 195, Mean Platelet Volume 10.4, Neutrophils (%) (Auto) 80H, Lymphocytes (%) (Auto) 12 , Monocytes (%) (Auto) 8, Eosinophils (%) (Auto) 1, Basophils (%) (Auto) 0, Neutrophils # (Auto) 8.6H, Lymphocytes # (Auto) 1.3, Monocytes # (Auto) 0.8, Eosinophils # (Auto) 0.1, Basophils # (Auto) 0.0, Sodium Level 143, Potassium Level 3.4L, Chloride Level 111H, Carbon Dioxide Level 23, Anion Gap 9, Blood Urea Nitrogen 11, Creatinine 0.80, Estimat Glomerular Filtration Rate > 60, BUN/ Creatinine Ratio 14, Glucose Level 107H, Calcium Level 8.6, Phosphorus Level 3.4 , Magnesium Level 1.7L Microbiology 04/18/17 Blood Culture - Preliminary, Resulted No growth Assessment/Plan Assessment/Plan Assess & Plan/Chief Complaint acute respiratory failure resolved. Pneumonia. Alzheimer's. Bipolar. Patient clinically improving Clinical Quality Measures DVT/VTE Risk/Contraindication: Risk Factor Score Per Nursin RFS Level Per Nursing on Admit: 4+=Very High ILA TEJEDA DO Apr 19, 2017 07:34
[2017-04-19] MEDS ORDERED: MILK OF MAGNESIA 400 MG/5 ML 30 ML UDC PO PRN (07:45)
--- NOTE | 2017-04-19 07:56 | Pulmonary Progress Note ---
Subjective Time Seen by Provider: 07:50 Subjective/Events-last exam PT appears much improved this morning. Exam Exam Vital Signs Date Time Temp Pulse Resp B/P (MAP) Pulse Ox O2 Delivery O2 Flow Rate FiO2 04/19/17 06:42 97 Nasal Cannula 2.00 04/19/17 06:00 73 27 107/71 96 NIV Bilevel 30.00 04/19/17 05:00 68 21 134/92 96 NIV Bilevel 30.00 04/19/17 04:00 59 19 94/44 95 NIV Bilevel 30.00 04/19/17 03:00 77 27 110/59 92 NIV Bilevel 30.00 04/19/17 02:00 76 16 116/71 93 NIV Bilevel 30.00 04/19/17 01:00 71 20 112/67 97 NIV Bilevel 30.00 04/19/17 01:00 71 04/19/17 00:00 95 Nasal Cannula 3.00 04/19/17 00:00 99.1 04/19/17 00:00 77 20 117/72 95 NIV Bilevel 30.00 04/18/17 23:00 78 23 112/88 95 NIV Bilevel 30.00 04/18/17 22:19 95 Nasal Cannula 3.50 04/18/17 22:00 79 19 122/45 96 NIV Bilevel 30.00 04/18/17 21:00 80 18 119/63 87 NIV Bilevel 30.00 04/18/17 20:00 99.9 04/18/17 20:00 94 Nasal Cannula 4.00 04/18/17 20:00 89 24 122/58 NIV Bilevel 30.00 04/18/17 19:09 94 Nasal Cannula 3.00 04/18/17 19:00 94 22 125/60 98 NIV Bilevel 30.00 04/18/17 19:00 95 04/18/17 18:00 98 19 111/79 97 NIV Bilevel 30.00 04/18/17 17:00 97 24 111/76 NIV Bilevel 30.00 04/18/17 16:43 98.2 NIV Bilevel 30.00 04/18/17 16:42 96 NIV Bilevel 30 04/18/17 16:00 100 24 124/74 94 NIV Bilevel 40.00 04/18/17 15:00 97 22 124/84 91 NIV Bilevel 40.00 04/18/17 14:27 87 25 94 40.00 04/18/17 14:00 89 27 92 NIV Bilevel 40.00 04/18/17 13:00 97 04/18/17 13:00 97 26 110/64 96 NIV Bilevel 40.00 04/18/17 12:45 99.7 NIV Bilevel 40.00 04/18/17 12:20 99.7 NIV Bilevel 40.00 04/18/17 12:20 97 NIV Bilevel 40 04/18/17 12:14 85 22 97 40.00 04/18/17 12:00 91 25 128/57 95 NIV Bilevel 40.00 04/18/17 11:00 92 26 131/68 94 NIV Bilevel 40.00 04/18/17 10:31 93 24 94 40.00 04/18/17 10:00 95 26 138/67 94 NIV Bilevel 40.00 04/18/17 10:00 NIV Bilevel 40.00 04/18/17 09:35 95 27 96 60.00 04/18/17 09:00 11 28 138/78 97 NIV Bilevel 40.00 04/18/17 08:31 110 04/18/17 08:15 107 28 140/93 97 NIV Bilevel 40.00 04/18/17 08:05 98.4 NIV Bilevel 60.00 04/18/17 08:05 98.4 NIV Bilevel 60.00 04/18/17 08:05 97 NIV Bilevel 60 04/18/17 07:54 111 27 97 80.00 General Appearance: Anxious, Mild Distress HEENT: PERRL/EOMI, Pharynx Normal Neck: Full Range of Motion, Normal Inspection, Non Tender, Supple Respiratory: Accessory Muscle Use, Decreased Breath Sounds, Rhonci Cardiovascular: No Gallop, No JVD, Tachycardia Capillary Refill: Less Than 3 Seconds Gastrointestinal: normal bowel sounds, non tender, soft Extremity: Normal Capillary Refill, Normal Inspection Neurologic/Psychiatric: Alert, Oriented x3 Skin: Normal Color, Warm/Dry Lymphatic: No Adenopathy Results Lab Laboratory Tests 04/18/17 00:13 04/18/17 05:50 04/19/17 05:29 Assessment/Plan Assessment/Plan -Acute respiratory failure with possible pneumonia -BiPAP PRN COPDAE -Start solumedrol -SVNS, oxygen Morbid obesity 233 Clinical Quality Measures DVT/VTE Risk/Contraindication: Risk Factor Score Per Nursin RFS Level Per Nursing on Admit: 4+=Very High SAI GUAMAN DO Apr 19, 2017 07:56
--- NOTE | 2017-04-19 09:21 | Diagnostic Imaging Report ---
CLINICAL INDICATION: Patient with dyspnea. EXAM: Portable chest x-ray semi-upright view. COMPARISON: Portable chest x-ray upright view dated 04/18/2017. FINDINGS: There is interval development of consolidation in the left lung base, which obscures left hemidiaphragm and left costophrenic angle region. These findings may be related to left lung base atelectasis or infiltrate. There is also possible development of a small left pleural effusion . Pulmonary vasculature and cardiac silhouettes within normal limits. There is no pneumothorax. There are degenerative spurs involving the thoracic spine. IMPRESSION: 1: Interval development of left lung base atelectasis versus infiltrate. There is also development of possible small left pleural effusion. 2: The remainder of this exam shows no significant interval change compared to the prior study of comparison. Dictated by: Dictated on workstation # [id number]
--- NOTE | 2017-04-19 10:18 | ST Dysphagia Evaluation ---
Speech Evaluation-General Medical Diagnosis Pneumonia Onset Date: Apr 18, 2017 Therapy Diagnosis Therapy Diagnosis: Mild Oral Dysphagia Precautions Precautions/Isolations: Fall Prevention, Standard Precautions Referral Referring Physician: Dr. Braulio Fonseca Reason for Referral: Evaluation/Treatment Clinical Bedside Swallowing Evaluation Medical History Pertinent Medical History: Dementia, GERD, Hypothroidism Reviewed History: Yes Speech PLF/Current-Dysphagia Prior Level of Function The patient was unable to provide information regarding prior level of function. Subjective The patient was recently admitted to [facility] with a diagnosis of pneumonia. The patient has a past medical history significant for dementia and was unable to provide prior level of function information to the clinician. The patient remained pleasant and cooperative throughout the evaluation. Cognitive Status The patient did not respond to orientation questions poised by the clinician. Oral Motor Skills Dentition: Natural (Poor condition) Current Food Consistancy: Regular, Thin Liquids Ability to Follow Directions: Poor Oral Expression Ability: Severe Impairment Voice Voice Phonatory-Based Quality: Glottal [place]iteside Voice Pitch: Mildly Low Voice Loudness: Moderately Loud Face Facial Symmetry: Symmetrical (At rest.) The patient was unable to follow verbal directions to complete oral motor examination. Oral-Facial Assessment Oral-Facial Dentition: Underbite Smile: Normal Dysphagia Evaluation Consistencies Presented: Regular, Thin Liquid, Pureed Oral Phase: Reduced Oral Transit - The patient demonstrated prolonged oral holding with puree consistencies, requiring intermittent verbal cueing by the clinician to initiate a swallow. The patient was unable to masticate the solid cracker, therefore, it was removed with a finger sweep by the clinician. - No pharyngeal deficits were noted throughout the evaluation. - Thin Liquid, Puree: No signs/symptoms of aspiration were demonstrated with multiple boluses of water (8 ounces of water) or puree (4 ounces). The patient' s vocal quality remained clear and her SpO2% remained at 94%. - Solid: The patient was unable to masticate a solid cracker. The cracker was removed with a finger sweep by the clinician. Dietary Recommendations: Pureed Liquid Recommendations: Thin Swallowing Precautions: Pocketing, Small Bites and Sips, Sitting 90 Degrees 30 Post Intake Dysphagia Evaluation Summary The patient displayed mild oral dysphagia characterized by decreased lingual range of motion and coordination. Barriers to Learning Cognition Speech-Plan Treatment Plan Speech Therapy Treatment Plan: Discontinue ST Evaluation, only. Frequency: Daily (Evaluation, only.) Estimated Hrs Per Day: Other (Evaluation, only.) Rehab Potential: Poor Safety Risks/Education Teaching Recipient: Patient Teaching Methods: Discussion Response to Teaching: Unable to Comprehend Education Topics Provided: Results, Recommendations, Swallowing Strategies, Signs/Symptoms of Aspiration Time Speech Therapy Time In: 09:30 Speech Therapy Time Out: 09:45 Total Billed Time: 15 Billed Treatment Time 1, JOSE REIS Apr 19, 2017 10:18
[2017-04-19] MEDS: LEVOTHYROXINE 150 MCG (LEVOTHROID) TAB PO SCH (10:43)
[2017-04-19] MEDS: toPIRamate 100 MG (TOPAMAX) TAB PO SCH ×2 (10:43→20:37)
[2017-04-19] MEDS: MEMANTINE 5 MG (NAMENDA) TABLET PO SCH ×2 (10:43→20:37)
[2017-04-19] MEDS: ENOXAPARIN 40 MG/0.4 ML (LOVENOX) SYR SC SCH (10:43)
[2017-04-19] MEDS: methylPREDNISolone 40 MG/ML (Solu-MEDROL) VIAL IV SCH ×3 (10:43→20:37)
[2017-04-19] MEDS: LACTULOSE SYRUP 10GM/15ML (ENULOSE) 30ML UDC PO SCH ×2 (10:43→20:37)
[2017-04-19] MEDS: FAMOTIDINE 20MG/2ML IV (PEPCID) IVP SCH (10:43)
[2017-04-19] MEDS: LURASIDONE 80 MG (LATUDA) TABLET NON-FORMULARY PO SCH ×2 (10:43→20:38)
[2017-04-19] MEDS: clonazePAM 0.5 MG (KlonoPIN) TAB PO SCH ×3 (10:43→20:37)
[2017-04-19] MEDS: NS IV 1000 ML 1,000 ML IV SCH ×2 (13:46→18:06)
[2017-04-19] MEDS: SIMvastatin 40 MG (ZOCOR) TAB PO SCH (17:16)
[2017-04-19] MEDS ORDERED: traZODone 50 MG (DESYREL) TAB PO SCH (21:00)
[2017-04-19] MEDS ORDERED: MELATONIN 3 MG TABLET PO SCH (21:00)
[2017-04-20 00:30] VITALS: BP 124/60
[2017-04-20] MEDS: methylPREDNISolone 40 MG/ML (Solu-MEDROL) VIAL IV SCH ×2 (01:36→12:37)
[2017-04-20] MEDS: RT-ALBUTEROL/IPRATROPIUM 3 ML (DUONEB) VIAL INH SCH ×6 (02:50→22:44)
[2017-04-20] MEDS: NS IV 1000 ML 1,000 ML IV SCH ×3 (03:33→23:38)
[2017-04-20 04:35] VITALS: BP 169/71
[2017-04-20 06:30] LABS: BASOPHILS % (AUTO) 0 % (0-10); LYMPHOCYTES # (AUTO) 0.6 X 10^3 (1.0-4.0); LYMPHOCYTES % (AUTO) 8 % (12-44); MEAN CORPUSCULAR HEMOGLOBIN 30 PG (25-34); MEAN CORPUSCULAR HGB CONC 32 G/DL (32-36); MEAN CORPUSCULAR VOLUME 95 FL (80-99); MEAN PLATELET VOLUME 10.9 FL (7.4-10.4); MONOCYTES # (AUTO) 0.1 X 10^3 (0.0-1.0); MONOCYTES % (AUTO) 2 % (0-12); PLATELET COUNT 187 10^3/uL (130-400); RED BLOOD COUNT 3.75 10^6/uL (4.35-5.85); RED CELL DISTRIBUTION WIDTH 13.2 % (10.0-14.5); WHITE BLOOD COUNT 7.8 10^3/uL (4.3-11.0)
[2017-04-20 06:31] LABS: EOSINOPHILS % (AUTO) 0 % (0-10); NEUTROPHILS # (AUTO) 7.1 X 10^3 (1.8-7.8); NEUTROPHILS % (AUTO) 90 % (42-75)
[2017-04-20 06:47] LABS: BAND NEUTROPHILS 0 %; BASOPHILS % (MANUAL) 0 %; CRENATED RBC SLIGHT; EOSINOPHILS % (MANUAL) 0 %; LYMPHOCYTES % (MANUAL) 8 %; NEUTROPHILS % (MANUAL) 91 %
[2017-04-20 06:48] LABS: ANION GAP 9 MMOL/L (5-14); BLOOD UREA NITROGEN 11 MG/DL (7-18); BUN/CREATININE RATIO 16; CALCIUM 8.4 MG/DL (8.5-10.1); CARBON DIOXIDE 19 MMOL/L (21-32); CHLORIDE 114 MMOL/L (98-107); CREATININE SERUM 0.68 MG/DL (0.60-1.30); GFR ESTIMATED > 60; GLUCOSE 151 MG/DL (70-105); MAGNESIUM 2.1 MG/DL (1.8-2.4); PHOSPHORUS 2.7 MG/DL (2.3-4.7); POTASSIUM 3.7 MMOL/L (3.6-5.0); SODIUM 142 MMOL/L (135-145)
[2017-04-20] MEDS: PIPERACILLIN SODIUM/TAZOBACTAM 4.5 GM in NS (IVPB) 100 ML IV SCH ×3 (07:29→23:38)
--- NOTE | 2017-04-20 07:39 | Progress Note (SOAP) ---
Subjective Time Seen by Provider: 07:30 Subjective/Events-last exam patient breathing better . Patient not waking up this morning. Patient in deep sleep has bradycardia in the 40s. Patient has dementia. Patient bipolar. Patient's medicines stopped and other doses lowered. Patient a work in progress Objective Exam Vital Signs Date Time Temp Pulse Resp B/P (MAP) Pulse Ox O2 Delivery O2 Flow Rate FiO2 04/20/17 04:35 98.0 66 16 169/71 96 Nasal Cannula 1.50 04/20/17 02:51 95 Nasal Cannula 2.00 04/20/17 01:00 55 04/20/17 00:30 97.1 65 16 124/60 96 Nasal Cannula 1.50 04/19/17 22:56 Nasal Cannula 2.00 04/19/17 21:48 98.4 54 18 90/53 91 Nasal Cannula 2.00 04/19/17 20:00 98.4 54 18 90/53 91 Nasal Cannula 2.00 04/19/17 19:00 79 04/19/17 16:00 99.5 74 18 140/61 95 04/19/17 15:02 95 Room Air 04/19/17 15:00 78 25 96/83 98 Nasal Cannula 2.00 04/19/17 14:00 68 21 101/58 94 Nasal Cannula 2.00 04/19/17 13:00 61 04/19/17 13:00 65 21 108/67 90 Nasal Cannula 2.00 04/19/17 12:30 98.6 04/19/17 12:30 Nasal Cannula 2.00 04/19/17 12:00 67 21 104/57 96 Nasal Cannula 2.00 04/19/17 11:00 70 20 107/61 98 Nasal Cannula 2.00 04/19/17 10:45 95 Room Air 04/19/17 10:00 77 20 102/49 99 Nasal Cannula 2.00 04/19/17 09:45 Room Air 04/19/17 09:00 67 21 96/71 94 Nasal Cannula 2.00 04/19/17 08:45 Nasal Cannula 2.00 04/19/17 08:05 99.5 Nasal Cannula 2.00 04/19/17 08:00 76 20 111/60 93 NIV Bilevel 30.00 Capillary Refill : Less Than 3 Seconds General Appearance: No Apparent Distress, WD/WN, Other (not opening eyes or respond to sternal rub) HEENT: Normal ENT Inspection Neck: Normal Inspection Respiratory: Lungs Clear, No Accessory Muscle Use, No Respiratory Distress Cardiovascular: Regular Rate, Rhythm, Bradycardia Gastrointestinal: non tender, soft Results Lab Laboratory Tests 04/20/17 06:00 Laboratory Tests 04/20/17 06:00: White Blood Count 7.8, Red Blood Count 3.75L, Hemoglobin 11.3L, Hematocrit 36, Mean Corpuscular Volume 95, Mean Corpuscular Hemoglobin 30, Mean Corpuscular Hemoglobin Concent 32, Red Cell Distribution Width 13.2, Platelet Count 187, Mean Platelet Volume 10.9H, Neutrophils (%) (Auto) 90H, Lymphocytes (%) (Auto) 8L, Monocytes (%) (Auto) 2, Eosinophils (%) (Auto) 0, Basophils (%) (Auto) 0, Neutrophils # (Auto) 7.1, Lymphocytes # (Auto) 0.6L, Monocytes # (Auto) 0.1, Eosinophils # (Auto) 0.0, Basophils # (Auto) 0.0, Neutrophils % (Manual) 91, Lymphocytes % (Manual) 8, Monocytes % (Manual) 1, Eosinophils % (Manual) 0, Basophils % (Manual) 0, Band Neutrophils 0, Clumped Platelets SLIGHT, Crenated Cell SLIGHT, Sodium Level 142, Potassium Level 3.7, Chloride Level 114H, Carbon Dioxide Level 19L, Anion Gap 9, Blood Urea Nitrogen 11, Creatinine 0.68, Estimat Glomerular Filtration Rate > 60, BUN/Creatinine Ratio 16, Glucose Level 151H, Calcium Level 8.4L, Phosphorus Level 2.7, Magnesium Level 2.1 Microbiology 04/18/17 Blood Culture - Preliminary, Resulted No growth Assessment/Plan Assessment/Plan Assess & Plan/Chief Complaint acute respiratory failure resolved. Pneumonia. Alzheimer's. Bipolar. Patient clinically improving. . 04/20/17. Acute respiratory failure resolved. Patient sleeping and not waking up. 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 Dementia. Bipolar. Pneumonia. Patient resting comfortably we'll watch Clinical Quality Measures DVT/VTE Risk/Contraindication: Risk Factor Score Per Nursin RFS Level Per Nursing on Admit: 4+=Very High ILA TEJEDA DO Apr 20, 2017 07:39
--- NOTE | 2017-04-20 07:57 | Diagnostic Imaging Report ---
INDICATION: Acute respiratory failure. COMPARISON STUDY: Chest from the previous day. FINDINGS: Portable upright view of the chest demonstrates stable left basilar atelectasis versus infiltrate. Heart size and vascularity are normal. IMPRESSION: Stable left basilar infiltrate or atelectasis. Dictated by: Dictated on workstation # [id number]
--- NOTE | 2017-04-20 07:58 | Pulmonary Progress Note ---
Subjective Time Seen by Provider: 07:56 Subjective/Events-last exam PT has hx of dementia and is slow to respond Exam Exam Vital Signs Date Time Temp Pulse Resp B/P (MAP) Pulse Ox O2 Delivery O2 Flow Rate FiO2 04/20/17 04:35 98.0 66 16 169/71 96 Nasal Cannula 1.50 04/20/17 02:51 95 Nasal Cannula 2.00 04/20/17 01:00 55 04/20/17 00:30 97.1 65 16 124/60 96 Nasal Cannula 1.50 04/19/17 22:56 Nasal Cannula 2.00 04/19/17 21:48 98.4 54 18 90/53 91 Nasal Cannula 2.00 04/19/17 20:00 98.4 54 18 90/53 91 Nasal Cannula 2.00 04/19/17 19:00 79 04/19/17 16:00 99.5 74 18 140/61 95 04/19/17 15:02 95 Room Air 04/19/17 15:00 78 25 96/83 98 Nasal Cannula 2.00 04/19/17 14:00 68 21 101/58 94 Nasal Cannula 2.00 04/19/17 13:00 61 04/19/17 13:00 65 21 108/67 90 Nasal Cannula 2.00 04/19/17 12:30 98.6 04/19/17 12:30 Nasal Cannula 2.00 04/19/17 12:00 67 21 104/57 96 Nasal Cannula 2.00 04/19/17 11:00 70 20 107/61 98 Nasal Cannula 2.00 04/19/17 10:45 95 Room Air 04/19/17 10:00 77 20 102/49 99 Nasal Cannula 2.00 04/19/17 09:45 Room Air 04/19/17 09:00 67 21 96/71 94 Nasal Cannula 2.00 04/19/17 08:45 Nasal Cannula 2.00 04/19/17 08:05 99.5 Nasal Cannula 2.00 04/19/17 08:00 76 20 111/60 93 NIV Bilevel 30.00 General Appearance: No Apparent Distress, WD/WN, Other (lethargy) HEENT: Normal ENT Inspection Neck: Normal Inspection Respiratory: Lungs Clear, No Accessory Muscle Use, No Respiratory Distress Cardiovascular: Regular Rate, Rhythm, Bradycardia Capillary Refill: Less Than 3 Seconds Gastrointestinal: non tender, soft Extremity: Normal Capillary Refill, Normal Inspection Neurologic/Psychiatric: Alert, Depressed Affect Skin: Normal Color, Warm/Dry Lymphatic: No Adenopathy Results Lab Laboratory Tests 04/19/17 05:29 04/20/17 06:00 Assessment/Plan Assessment/Plan -Acute respiratory failure with pneumonia - improving -BiPAP PRN COPDAE - improved -decrease to solumedrol Q12 -SVNS, oxygen Morbid obesity Chronic dementia 232 Clinical Quality Measures DVT/VTE Risk/Contraindication: Risk Factor Score Per Nursin RFS Level Per Nursing on Admit: 4+=Very High SAI GUAMAN DO Apr 20, 2017 07:58
[2017-04-20 08:00] VITALS: BP 150/68
[2017-04-20] MEDS: FAMOTIDINE 20MG/2ML IV (PEPCID) IVP SCH (09:27)
[2017-04-20] MEDS: ENOXAPARIN 40 MG/0.4 ML (LOVENOX) SYR SC SCH (09:27)
[2017-04-20] MEDS: MEMANTINE 5 MG (NAMENDA) TABLET PO SCH ×2 (10:10→20:07)
[2017-04-20] MEDS: LEVOTHYROXINE 150 MCG (LEVOTHROID) TAB PO SCH (10:10)
[2017-04-20] MEDS: toPIRamate 25 MG (TOPAMAX) TAB PO SCH ×2 (10:11→20:07)
[2017-04-20 12:00] VITALS: BP 137/59
[2017-04-20 15:55] VITALS: BP 167/70
[2017-04-20] MEDS: SIMvastatin 40 MG (ZOCOR) TAB PO SCH (17:39)
[2017-04-20] MEDS: LURASIDONE 80 MG (LATUDA) TABLET NON-FORMULARY PO SCH (17:40)
[2017-04-20 20:05] VITALS: BP 137/62
[2017-04-21] VITALS (7 sets, daily range): BP systolic 120–169; BP diastolic 58–83
[2017-04-21] MEDS: methylPREDNISolone 40 MG/ML (Solu-MEDROL) VIAL IV SCH (00:06)
[2017-04-21] MEDS: RT-ALBUTEROL/IPRATROPIUM 3 ML (DUONEB) VIAL INH SCH ×6 (02:17→21:28)
[2017-04-21 05:15] LABS: BASOPHILS % (AUTO) 0 % (0-10); EOSINOPHILS % (AUTO) 0 % (0-10); LYMPHOCYTES # (AUTO) 0.8 X 10^3 (1.0-4.0); LYMPHOCYTES % (AUTO) 7 % (12-44); MEAN CORPUSCULAR HEMOGLOBIN 30 PG (25-34); MEAN CORPUSCULAR HGB CONC 32 G/DL (32-36); MEAN CORPUSCULAR VOLUME 93 FL (80-99); MEAN PLATELET VOLUME 10.5 FL (7.4-10.4); MONOCYTES # (AUTO) 0.2 X 10^3 (0.0-1.0); MONOCYTES % (AUTO) 2 % (0-12); NEUTROPHILS # (AUTO) 9.5 X 10^3 (1.8-7.8); NEUTROPHILS % (AUTO) 90 % (42-75); PLATELET COUNT 214 10^3/uL (130-400); RED BLOOD COUNT 3.91 10^6/uL (4.35-5.85); RED CELL DISTRIBUTION WIDTH 12.9 % (10.0-14.5); WHITE BLOOD COUNT 10.5 10^3/uL (4.3-11.0)
[2017-04-21] MEDS: LEVOTHYROXINE 150 MCG (LEVOTHROID) TAB PO SCH (05:30)
[2017-04-21 06:04] LABS: ALANINE AMINOTRANSFERASE 17 U/L (0-55); ALBUMIN 3.4 GM/DL (3.2-4.5); ANION GAP 10 MMOL/L (5-14); ASPARTATE AMINO TRANSFERASE 14 U/L (5-34); BILIRUBIN,TOTAL 0.3 MG/DL (0.1-1.0); BLOOD UREA NITROGEN 13 MG/DL (7-18); BUN/CREATININE RATIO 19; CALCIUM 8.1 MG/DL (8.5-10.1); CARBON DIOXIDE 18 MMOL/L (21-32); CHLORIDE 111 MMOL/L (98-107); CREATININE SERUM 0.67 MG/DL (0.60-1.30); GFR ESTIMATED > 60; GLUCOSE 144 MG/DL (70-105); SODIUM 139 MMOL/L (135-145); TOTAL PROTEIN 5.4 GM/DL (6.4-8.2)
[2017-04-21 06:09] LABS: ANION GAP 9 MMOL/L (5-14); BLOOD UREA NITROGEN 13 MG/DL (7-18); BUN/CREATININE RATIO 19; CALCIUM 8.2 MG/DL (8.5-10.1); CARBON DIOXIDE 19 MMOL/L (21-32); CHLORIDE 111 MMOL/L (98-107); CREATININE SERUM 0.68 MG/DL (0.60-1.30); GFR ESTIMATED > 60; GLUCOSE 144 MG/DL (70-105); MAGNESIUM 2.2 MG/DL (1.8-2.4); PHOSPHORUS 2.1 MG/DL (2.3-4.7); POTASSIUM 3.8 MMOL/L (3.6-5.0); SODIUM 139 MMOL/L (135-145)
[2017-04-21] MEDS: PIPERACILLIN SODIUM/TAZOBACTAM 4.5 GM in NS (IVPB) 100 ML IV SCH ×3 (06:45→23:48)
[2017-04-21] MEDS: toPIRamate 25 MG (TOPAMAX) TAB PO SCH ×2 (08:45→20:24)
[2017-04-21] MEDS: MEMANTINE 5 MG (NAMENDA) TABLET PO SCH ×2 (08:45→20:23)
[2017-04-21] MEDS: FAMOTIDINE 20MG/2ML IV (PEPCID) IVP SCH (08:46)
[2017-04-21] MEDS: ENOXAPARIN 40 MG/0.4 ML (LOVENOX) SYR SC SCH (08:46)
[2017-04-21] MEDS: NS IV 1000 ML 1,000 ML IV SCH (09:44)
--- NOTE | 2017-04-21 11:34 | Consultation-Cardiology ---
HPI-Cardiology Cardiology Consultation: Date of Consultation 04/21/17 Date of Admission Attending Physician Braulio Fonseca DO Admitting Physician Braulio Fonseca DO Consulting Physician Jose HERNÁNDEZ MD HPI: Time Seen by Provider: 11:35 Chief Complaint: Bradycardia This is a 66-year-old lady with no known past cardiac history. She presented with pneumonia and is receiving treatment. She is was on multiple psych medications. She was found to have sinus bradycardia with heart rate of 50. She was also complaining of fatigue. This was yesterday. I interviewed the patient today and she says that her fatigue and tiredness has increased. Dr. Fonseca decreased her psychotropic medications yesterday. According to the nurses the patient is a poor historian and also may be confused. However she denies having any syncope, near-syncope, palpitation, chest pain or shortness of breath. Review of Systems-Cardiology Review of Systems Constitutional: No As described under HPI, No no symptoms reported, No chills, No fever, No lightheadedness, No malaise, No tiredness, No weight loss, No weight gain, No other Eyes: No As described under HPI, No no symptoms reported, No blindness, No blurred vision, No contact lenses, No drainage, No decreased acuity, No foreign body sensation, No glasses, No inflammation, No pain, No photophobia, No previous injury, No shadows, No tunnel vision, No other, No vision change Ears/Nose/Throat: No As described under HPI, No no symptoms reported, No chronic hearing loss, No epistaxis, No ear discharge, No ear pain, No loose teeth, No mouth pain, No mouth swelling, No nasal drainage, No nose pain, No recent hearing loss, No throat pain, No throat swelling, No ulcerations, No other Respiratory: No no symptoms reported, No As described under HPI, No cough, No orthopnea, No shortness of breath, No SOB with excertion, No SOB at rest, No stridor, No wheezing, No other Cardiovascular: No no symptoms reported, No As described under HPI, No chest pain, No edema, No irregular heart rate, No lightheadedness, No palpitations, No syncope, No other Gastrointestinal: No no symptoms reported, No As described under HPI, No abdomen distended, No abdominal pain, No blood streaked bowels, No constipation , No diarrhea, No difficulty swallowing, No nausea, No poor appetite, No poor fluid intake, No rectal bleeding, No vomiting, No other, No nausea/vomiting/ diarrhea, No stool coloration changes Genitourinary: No no symptoms reported, No As described under HPI, No burning, No dysuria, No discharge, No frequency, No flank pain, No hematuria, No incontinence, No pain, No urgency, No other, No urine frequency changes, No urine coloration changes [id number] Hx Patient Social History Marrital Status: Employed/Student: unemployed Alcohol Use: Denies Use Recreational Drug Use: No Smoking Status: Former Smoker Type Used: Cigarettes 2nd Hand Smoke Exposure: No Recent Foreign Travel: No Recent Infectious Disease Expo: No Hospitalization with Isolation: Denies Physical Abuse Screen: No Sexual Abuse: No Immunizations Up To Date Date of Pneumonia Vaccine: Feb 02, 2014 Date of Influenza Vaccine: Apr 20, 2014 Past Medical History PMH As described under Assessment. Family Medical History Family History: Patient reports no known family medical history. Allergies and Home Medications Allergies Coded Allergies: olanzapine (Verified Allergy, Unknown, 09/23/08) Home Medications Cholecalciferol (Vitamin D3) 1,000 Unit Capsule, 2,000 UNIT PO DAILY, (Reported) TAKES 2 (1000 UNIT) CAPSULES Clonazepam 0.5 Mg Tablet, 0.5 MG PO TID, (Reported) Escitalopram Oxalate 10 Mg Tablet, 10 MG PO DAILY, (Reported) Lactulose 20 Gm/30 Ml Solution, 30 ML PO BID, (Reported) Levothyroxine Sodium 150 Mcg Tablet, 150 MCG PO DAILY, (Reported) Lurasidone HCl 40 Mg Tablet, 40 MG PO BID, (Reported) Magnesium Hydroxide 400 Mg/5 Ml Oral.susp, 30 ML PO DAILY PRN for CONSTIPATION- 7TH LINE, (Reported) Melatonin 3 Mg Tablet, 3 MG PO HS, (Reported) Memantine HCl 5 Mg Tablet, 5 MG PO BID, (Reported) Rivastigmine 4.6 Mg Patch, 4.6 MG TD DAILY, (Reported) Simvastatin 40 Mg Tablet, 40 MG PO 1700, (Reported) Topiramate 100 Mg Tablet, 100 MG PO BID, (Reported) Trazodone HCl 50 Mg Tablet, 50 MG PO HS, (Reported) Physical Exam-Cardiology Physical Exam Vital Signs/I&O Vital Sign - Last 12Hours 04/21/17 04/21/17 04/21/17 04/21/17 01:00 02:18 04:13 07:14 Temp 98.7 Pulse 60 56 Resp 20 B/P (MAP) 151/72 Pulse Ox 95 96 93 O2 Delivery Room Air Room Air Room Air 04/21/17 04/21/17 08:00 10:32 Temp 97.1 Pulse 74 Resp 16 B/P (MAP) 141/62 Pulse Ox 97 94 O2 Delivery Room Air Room Air Capillary Refill : Less Than 3 Seconds Data Review Labs Laboratory Tests 04/21/17 04:54: White Blood Count 10.5, Red Blood Count 3.91L, Hemoglobin 11.8, Hematocrit 37, Mean Corpuscular Volume 93, Mean Corpuscular Hemoglobin 30, Mean Corpuscular Hemoglobin Concent 32, Red Cell Distribution Width 12.9, Platelet Count 214, Mean Platelet Volume 10.5H, Neutrophils (%) (Auto) 90H, Lymphocytes (%) (Auto) 7L, Monocytes (%) (Auto) 2, Eosinophils (%) (Auto) 0, Basophils (%) (Auto) 0, Neutrophils # (Auto) 9.5H, Lymphocytes # (Auto) 0.8L, Monocytes # (Auto) 0.2, Eosinophils # (Auto) 0.0, Basophils # (Auto) 0.0, Sodium Level 139, Potassium Level 3.8, Chloride Level 111H, Carbon Dioxide Level 19L, Anion Gap 9, Blood Urea Nitrogen 13, Creatinine 0.68, Estimat Glomerular Filtration Rate > 60, BUN/ Creatinine Ratio 19, Glucose Level 144H, Calcium Level 8.2L, Phosphorus Level 2.1L, Magnesium Level 2.2, Total Bilirubin 0.3, Aspartate Amino Transf (AST/SGOT ) 14, Alanine Aminotransferase (ALT/SGPT) 17, Alkaline Phosphatase 58, Total Protein 5.4L, Albumin 3.4 Microbiology 04/18/17 Blood Culture - Preliminary, Resulted No growth ECG Impression ECG Initial ECG Rhythm: Normal Sinus Initial ECG Impression: Normal A/P-Cardiology Assessment/Admission Diagnosis Sinus bradycardia, Fatigue, Pneumonia, Multiple psychotropic medications Plan On my examination the patient did not have any signs of congestive heart failure. Patient has sinus bradycardia. On telemetry the lowest heart rate was sinus bradycardia at 50 BPM. When I saw her I did another EKG and her EKG shows sinus rhythm at 59 BPM. Earlier today her telemetry shows that her heart rate was over 60 BPM. She complains of more fatigue today than yesterday however her heart rate is better today than yesterday. Although the patient is a poor historian, her fatigue may not be related to her bradycardia. She denies any symptoms of dizziness, syncope or near syncope. Therefore her bradycardia is likely asymptomatic. The patient is not on beta blockers or calcium channel blockers. If required, for persistent bradycardia, she can go home on an event monitor for 2-4 weeks and then we can also follow her clinically. If she is found to have profound bradycardia associated with symptoms of cerebral hypoperfusion such as dizziness, syncope or near syncope further cardiac intervention may be recommended. If okay with Dr. Fonseca, I will sign off for now but will be happy to see in the future if the need arises. Thank you for your consultation. Please call me if you have any questions. Jamshid Hernández MD, FACP, FACC, FSCAI, FHRS, CCDS Interventional Cardiology Cardiac Electrophysiology Vascular Medicine and Endovascular Interventions Clinical Quality Measures DVT/VTE Risk/Contraindication: Risk Factor Score Per Nursin RFS Level Per Nursing on Admit: 4+=Very High Jose HERNÁNDEZ MD Apr 21, 2017 11:34 am
--- NOTE | 2017-04-21 11:48 | Progress Note-Hospitalist ---
Subjective HPI/CC On Admission Date Seen by Provider: Apr 21, 2017 Time Seen by Provider: 11:00 Subjective/Events-last exam patient is sitting up in a chair awake and alert. She denies having any complaints. She doesn't know if she is doing better or not. Remains confused Review of Systems Neurological: Confusion Objective Exam Vital Signs Vital Sign - Last 12Hours 04/18/17 04/18/17 00:03 03:46 Temp 99.3 Pulse 83 Resp 20 B/P (MAP) 135/87 Pulse Ox 97 O2 Delivery Nasal Cannula O2 Flow Rate 2.00 FiO2 2 Capillary Refill : Less Than 3 Seconds General Appearance: No Apparent Distress, Obese HEENT: Normal ENT Inspection Respiratory: Decreased Breath Sounds, Rhonci (scattered) Cardiovascular: Regular Rate, Rhythm, No Gallop Gastrointestinal: Normal Bowel Sounds, Non Tender, Soft Neurologic/Psychiatric: Alert, Depressed Affect, Disoriented x3, Motor Weakness Skin: Pallor Results/Procedures Lab Laboratory Tests 04/21/17 04:54 Assessment/Plan Assessment and Plan Assess & Plan/Chief Complaint Acute respiratory failure resolving on Zosyn, will DC Solu-Medrol and changed to prednisone and Hep-Lock IV fluids. weakness Dementia. Bipolar. Pneumonia. Will DC IV fluids and Hep-Lock Hypothyroid replaced GISELA TOTH MD Apr 21, 2017 11:48
[2017-04-21] MEDS: predniSONE 20 MG TAB PO SCH (13:25)
[2017-04-21] MEDS: LURASIDONE 80 MG (LATUDA) TABLET NON-FORMULARY PO SCH (17:32)
[2017-04-21] MEDS: SIMvastatin 40 MG (ZOCOR) TAB PO SCH (17:32)
[2017-04-21] MEDS: FAMOTIDINE 20 MG (PEPCID) TABLET PO SCH (20:23)
[2017-04-22] MEDS: RT-ALBUTEROL/IPRATROPIUM 3 ML (DUONEB) VIAL INH SCH ×6 (02:15→22:15)
[2017-04-22 04:00] VITALS: BP 158/79
[2017-04-22 05:29] LABS: BASOPHILS % (AUTO) 0 % (0-10); EOSINOPHILS # (AUTO) 0.1 10^3/uL (0.0-0.3); EOSINOPHILS % (AUTO) 1 % (0-10); LYMPHOCYTES # (AUTO) 1.9 X 10^3 (1.0-4.0); LYMPHOCYTES % (AUTO) 19 % (12-44); MEAN CORPUSCULAR HEMOGLOBIN 31 PG (25-34); MEAN CORPUSCULAR HGB CONC 33 G/DL (32-36); MEAN CORPUSCULAR VOLUME 93 FL (80-99); MEAN PLATELET VOLUME 10.6 FL (7.4-10.4); MONOCYTES # (AUTO) 0.8 X 10^3 (0.0-1.0); MONOCYTES % (AUTO) 8 % (0-12); NEUTROPHILS # (AUTO) 7.4 X 10^3 (1.8-7.8); NEUTROPHILS % (AUTO) 73 % (42-75); PLATELET COUNT 224 10^3/uL (130-400); RED CELL DISTRIBUTION WIDTH 13.1 % (10.0-14.5); WHITE BLOOD COUNT 10.2 10^3/uL (4.3-11.0)
[2017-04-22 05:57] LABS: ANION GAP 10 MMOL/L (5-14); BLOOD UREA NITROGEN 14 MG/DL (7-18); BUN/CREATININE RATIO 19; CALCIUM 8.3 MG/DL (8.5-10.1); CARBON DIOXIDE 20 MMOL/L (21-32); CHLORIDE 110 MMOL/L (98-107); CREATININE SERUM 0.72 MG/DL (0.60-1.30); GFR ESTIMATED > 60; GLUCOSE 96 MG/DL (70-105); MAGNESIUM 2.4 MG/DL (1.8-2.4); PHOSPHORUS 2.1 MG/DL (2.3-4.7); POTASSIUM 3.4 MMOL/L (3.6-5.0); SODIUM 140 MMOL/L (135-145)
[2017-04-22] MEDS: PIPERACILLIN SODIUM/TAZOBACTAM 4.5 GM in NS (IVPB) 100 ML IV SCH ×3 (06:47→23:34)
[2017-04-22] MEDS: predniSONE 20 MG TAB PO SCH (06:47)
[2017-04-22] MEDS: LEVOTHYROXINE 150 MCG (LEVOTHROID) TAB PO SCH (06:47)
[2017-04-22 08:38] VITALS: BP 133/92
[2017-04-22] MEDS: ENOXAPARIN 40 MG/0.4 ML (LOVENOX) SYR SC SCH (09:14)
[2017-04-22] MEDS: FAMOTIDINE 20 MG (PEPCID) TABLET PO SCH ×2 (09:14→21:29)
[2017-04-22] MEDS: toPIRamate 25 MG (TOPAMAX) TAB PO SCH ×2 (09:14→21:29)
[2017-04-22] MEDS: MEMANTINE 5 MG (NAMENDA) TABLET PO SCH ×2 (09:14→21:29)
--- NOTE | 2017-04-22 09:37 | Progress Note-Hospitalist ---
Subjective HPI/CC On Admission Date Seen by Provider: Apr 22, 2017 Time Seen by Provider: 08:50 Subjective/Events-last exam patient asked for a cheeseburger and chocolate milk this morning. Says she's feeling better. No other complaints Objective Exam Vital Signs Vital Sign - Last 12Hours 04/18/17 04/18/17 00:03 03:46 Temp 99.3 Pulse 83 Resp 20 B/P (MAP) 135/87 Pulse Ox 97 O2 Delivery Nasal Cannula O2 Flow Rate 2.00 FiO2 2 Capillary Refill : Less Than 3 SecondsLess Than 3 Seconds General Appearance: No Apparent Distress, WD/WN, Obese HEENT: Normal ENT Inspection Neck: Supple Respiratory: Crackles, Decreased Breath Sounds Cardiovascular: Regular Rate, Rhythm, No Gallop, No Murmur Gastrointestinal: Soft Neurologic/Psychiatric: Alert Skin: Normal Color, Warm/Dry Results/Procedures Lab Laboratory Tests 04/22/17 04:15 Assessment/Plan Assessment and Plan Assess & Plan/Chief Complaint Acute respiratory failure resolving on Zosyn, will DC Solu-Medrol and changed to prednisone and Hep-Lock IV fluids. weakness Dementia. Bipolar. Pneumonia-left lower lobe Will DC IV fluids and Hep-Lock Hypothyroid replaced GISELA TOTH MD Apr 22, 2017 09:37
--- NOTE | 2017-04-22 11:14 | Diagnostic Imaging Report ---
INDICATION: Followup infiltrates. COMPARISON: 04/20/2017 FINDINGS: Single frontal radiographic view of the chest was obtained and shows significant interval improved aeration of the left lung base. There may be some residual opacification, laterally. Right lung is relatively clear. No large effusion or pneumothorax is seen on either side. Cardiac silhouette and pulmonary vasculature stable. There is calcified aortic atherosclerosis. Bony structures are unchanged. IMPRESSION: 1. Significant interval improved aeration of the left lung base as described above. Dictated by: Dictated on workstation # [id number]
[2017-04-22 12:00] VITALS: BP 158/82
[2017-04-22 16:00] VITALS: BP 136/65
[2017-04-22] MEDS: SIMvastatin 40 MG (ZOCOR) TAB PO SCH (17:44)
[2017-04-22] MEDS: LURASIDONE 80 MG (LATUDA) TABLET NON-FORMULARY PO SCH (17:44)
[2017-04-22 20:00] VITALS: BP 146/79
[2017-04-23] VITALS: BP 139/63
[2017-04-23 02:27] VITALS: BP 139/63
[2017-04-23] MEDS: RT-ALBUTEROL/IPRATROPIUM 3 ML (DUONEB) VIAL INH SCH ×6 (03:13→22:10)
[2017-04-23] MEDS: predniSONE 20 MG TAB PO SCH (06:14)
[2017-04-23] MEDS: LEVOTHYROXINE 150 MCG (LEVOTHROID) TAB PO SCH (06:14)
[2017-04-23] MEDS: PIPERACILLIN SODIUM/TAZOBACTAM 4.5 GM in NS (IVPB) 100 ML IV SCH ×2 (06:35→15:37)
[2017-04-23 08:00] VITALS: BP 139/65
[2017-04-23] MEDS: ENOXAPARIN 40 MG/0.4 ML (LOVENOX) SYR SC SCH (08:34)
[2017-04-23] MEDS: FAMOTIDINE 20 MG (PEPCID) TABLET PO SCH ×2 (08:34→20:43)
[2017-04-23] MEDS: toPIRamate 25 MG (TOPAMAX) TAB PO SCH ×2 (08:34→20:43)
[2017-04-23] MEDS: MEMANTINE 5 MG (NAMENDA) TABLET PO SCH ×2 (08:34→20:43)
[2017-04-23 12:00] VITALS: BP 155/60
[2017-04-23] MEDS ORDERED: KCL 10 MEQ TAB (MICRO K) PO NR (12:15)
[2017-04-23] MEDS ORDERED: POTASSIUM PHOSPHATE INJ 15 MM in NS (IVPB) 250 ML IV ONE (12:15)
--- NOTE | 2017-04-23 12:16 | Progress Note (SOAP) ---
Subjective Date Seen by Provider: Apr 23, 2017 Time Seen by Provider: 12:11 Subjective/Events-last exam Fwup respiratory failure, pneumonia, dementia, weakness. Sitting up in bed eating. Confused but no complaints. Objective Exam Vital Signs Date Time Temp Pulse Resp B/P (MAP) Pulse Ox O2 Delivery O2 Flow Rate FiO2 04/23/17 09:54 92 Room Air 04/23/17 08:01 Room Air 04/23/17 08:00 99.5 57 20 139/65 92 Room Air 04/23/17 07:12 92 Room Air 04/23/17 03:13 92 Room Air 04/23/17 02:27 98.9 67 18 139/63 94 Room Air 04/23/17 01:00 68 04/23/17 00:00 97.9 67 18 139/63 94 Room Air 04/22/17 22:15 93 Room Air 04/22/17 20:25 Room Air 04/22/17 20:00 96.7 67 20 146/79 93 Room Air 04/22/17 19:00 59 04/22/17 18:53 94 Room Air 04/22/17 16:00 99.5 97 18 136/65 94 Room Air 04/22/17 14:50 95 Room Air I & O 04/24/17 07:00 Intake Total 100 ml Balance 100 ml Capillary Refill : Less Than 3 SecondsLess Than 3 Seconds General Appearance: No Apparent Distress Neck: Supple Respiratory: Lungs Clear Cardiovascular: Regular Rate, Rhythm Gastrointestinal: normal bowel sounds, non tender, soft Extremity: Non Tender, No Calf Tenderness, No Pedal Edema Neurologic/Psychiatric: Alert, Disoriented x3 Skin: Warm/Dry Results Lab Microbiology 04/18/17 Blood Culture - Preliminary, Resulted No growth Assessment/Plan Assessment/Plan Assess & Plan/Chief Complaint Acute respiratory failure--resolving on Zosyn and prednisone Weakness--multifactorial Dementia--back on home meds Bipolar--back on home meds Pneumonia-on zosyn, CXR improved Hypokalemia--replace potassium Hypothyroid-- replaced Hypophosphatemia--replace phosphorus Clinical Quality Measures DVT/VTE Risk/Contraindication: Risk Factor Score Per Nursin RFS Level Per Nursing on Admit: 4+=Very High SATNAM SORIA DO Apr 23, 2017 12:16 pm
[2017-04-23 16:00] VITALS: BP 159/71
[2017-04-23] MEDS: LURASIDONE 80 MG (LATUDA) TABLET NON-FORMULARY PO SCH (17:19)
[2017-04-23] MEDS: SIMvastatin 40 MG (ZOCOR) TAB PO SCH (17:19)
[2017-04-23 20:00] VITALS: BP 134/60
[2017-04-24] VITALS: BP 150/69
[2017-04-24] MEDS: PIPERACILLIN SODIUM/TAZOBACTAM 4.5 GM in NS (IVPB) 100 ML IV SCH ×3 (00:02→16:05)
[2017-04-24] MEDS: RT-ALBUTEROL/IPRATROPIUM 3 ML (DUONEB) VIAL INH SCH ×4 (02:48→16:08)
[2017-04-24 04:00] VITALS: BP 164/71
[2017-04-24 06:26] LABS: ANION GAP 10 MMOL/L (5-14); BLOOD UREA NITROGEN 15 MG/DL (7-18); BUN/CREATININE RATIO 20; CALCIUM 8.6 MG/DL (8.5-10.1); CARBON DIOXIDE 21 MMOL/L (21-32); CHLORIDE 108 MMOL/L (98-107); CREATININE SERUM 0.75 MG/DL (0.60-1.30); GFR ESTIMATED > 60; GLUCOSE 96 MG/DL (70-105); PHOSPHORUS 3.3 MG/DL (2.3-4.7); POTASSIUM 3.5 MMOL/L (3.6-5.0); SODIUM 139 MMOL/L (135-145)
[2017-04-24] MEDS: predniSONE 20 MG TAB PO SCH (06:32)
[2017-04-24] MEDS: LEVOTHYROXINE 150 MCG (LEVOTHROID) TAB PO SCH (06:32)
--- NOTE | 2017-04-24 07:59 | Progress Note (SOAP) ---
Subjective Time Seen by Provider: 07:55 Subjective/Events-last exam patient doing much better. Patient is talking. Patient not making much sense. Patient stable. Pneumonia and last x-ray improved. Dementia. Acute respiratory failure. Bipolar. Patient put on a pured diet area COPD morbid obesity Objective Exam Vital Signs Date Time Temp Pulse Resp B/P (MAP) Pulse Ox O2 Delivery O2 Flow Rate FiO2 04/24/17 06:22 99 Nasal Cannula 1.00 04/24/17 02:49 93 Room Air 04/24/17 00:38 59 04/24/17 00:00 97.7 57 18 150/69 95 Room Air 04/23/17 22:11 94 Room Air 04/23/17 20:00 Room Air 04/23/17 20:00 99.8 67 18 134/60 95 Room Air 04/23/17 19:00 72 04/23/17 18:40 95 Room Air 04/23/17 16:00 99.7 66 18 159/71 99 Room Air 04/23/17 14:28 94 Room Air 04/23/17 12:00 99.4 70 18 155/60 94 Room Air 04/23/17 09:54 92 Room Air 04/23/17 08:01 Room Air 04/23/17 08:00 99.5 57 20 139/65 92 Room Air Capillary Refill : Less Than 3 SecondsLess Than 3 Seconds General Appearance: No Apparent Distress, WD/WN HEENT: Normal ENT Inspection Neck: Full Range of Motion, Normal Inspection Respiratory: Chest Non Tender, Lungs Clear, Normal Breath Sounds, No Accessory Muscle Use, No Respiratory Distress Cardiovascular: Regular Rate, Rhythm Gastrointestinal: non tender, soft Results Lab Laboratory Tests 04/24/17 06:00 Laboratory Tests 04/24/17 06:00: Sodium Level 139, Potassium Level 3.5L, Chloride Level 108H, Carbon Dioxide Level 21, Anion Gap 10, Blood Urea Nitrogen 15, Creatinine 0.75, Estimat Glomerular Filtration Rate > 60, BUN/Creatinine Ratio 20, Glucose Level 96, Calcium Level 8.6, Phosphorus Level 3.3 Microbiology 04/18/17 Blood Culture - Final, Complete No growth Assessment/Plan Assessment/Plan Assess & Plan/Chief Complaint acute respiratory failure resolved. Pneumonia. Alzheimer's. Bipolar. Patient clinically improving. . 04/20/17. Acute respiratory failure resolved. Patient sleeping and not waking up. 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 Dementia. Bipolar. Pneumonia. Patient resting comfortably we'll watch. . 04/24/17. Acute respiratory failure. Pneumonia. Dementia. Bipolar. Patient doing good area Plan to discharge today Clinical Quality Measures DVT/VTE Risk/Contraindication: Risk Factor Score Per Nursin RFS Level Per Nursing on Admit: 4+=Very High ILA TEJEDA DO Apr 24, 2017 07:59
--- NOTE | 2017-04-24 08:02 | Discharge Inst-Skilled Nursing ---
Discharge Inst-Skilled NF Patient Instructions Patient Problems: pneumonia. Dementia. Consult/Follow Up/Orders Follow Up Appt.: one week in office Skilled NF Admit to: [facility] Certification (SNF) I certify that SNF services are required to be given on an inpatient basis because of the above named patient's need for penitentiary care on a continuing basis for the conditions(s) for which he/she was receiving inpatient hospital services prior to his/her transfer to the SNF. Intermediate Facility Order: [facility] Operator-Evaluate & Treat, Physical Therapy-Evaluate & Treat Discharge Diet: Other Diet (pured diet) New & Resume Previous Orders Braulio Tejeda Apr 24, 2017 08:02 BRAULIO TEJEDA DO Apr 24, 2017 08:02
[2017-04-24 08:40] VITALS: BP 155/70
[2017-04-24] MEDS: FAMOTIDINE 20 MG (PEPCID) TABLET PO SCH (08:40)
[2017-04-24] MEDS: MEMANTINE 5 MG (NAMENDA) TABLET PO SCH (08:40)
[2017-04-24] MEDS: ENOXAPARIN 40 MG/0.4 ML (LOVENOX) SYR SC SCH (08:41)
[2017-04-24] MEDS: toPIRamate 25 MG (TOPAMAX) TAB PO SCH (08:41)
[2017-04-24 12:00] VITALS: BP 128/62
[2017-04-24 16:15] VITALS: BP 128/62
== END 2017-04-24 16:15 | DRG 189 ==
LOC: EDUNIT# 00:02 → ER 00:03 → 4TH 02:00 → ICU 08:05 → 4TH 04-19 16:19
PROVIDERS: ADMIT Family Medicine; ATTEND Family Medicine
DX: J96.01 Acute respiratory failure with hypoxia (principal); J44.0 Chronic obstructive pulmonary disease with (acute) lower respiratory infection; J18.9 Pneumonia, unspecified organism; J81.1 Chronic pulmonary edema; J44.1 Chronic obstructive pulmonary disease with (acute) exacerbation; E66.01 Morbid (severe) obesity due to excess calories; G30.9 Alzheimer's disease, unspecified; F02.80 Dementia in other diseases classified elsewhere, unspecified severity, without behavioral disturbance, psychotic disturbance, mood disturbance, and anxiety; F31.9 Bipolar disorder, unspecified; F79 Unspecified intellectual disabilities; F89 Unspecified disorder of psychological development; E78.00 Pure hypercholesterolemia, unspecified; E03.9 Hypothyroidism, unspecified; E87.6 Hypokalemia; E83.39 Other disorders of phosphorus metabolism; R53.1 Weakness; K21.9 Gastro-esophageal reflux disease without esophagitis; K59.09 Other constipation; R00.1 Bradycardia, unspecified; G47.9 Sleep disorder, unspecified; Z87.891 Personal history of nicotine dependence; Z68.38 Body mass index [BMI] 38.0-38.9, adult
CPT/HCPCS: 36415; 51702; 71010; 80048; 80053; 81000; 82805; 83605; 83735; 83880; 84100; 84484; 85007; 85025; 85027; 85610; 85730; 87040; 93005; 93306; 94640; 94660; 94760; 96365; 96375

== ENCOUNTER 2021-07-26 19:45 | Emergency (ER) | payer MEDICARE, MEDICAID ==
[~2021-07-26 19:45] MED LIST changes: +CHOL10007 PO; +CLON0.5T PO; +LACT20SO2 PO; +LEVO150T6 PO; +LURA40TA3 PO; +MAGN400O7 PO; +MELA3TAB39 PO; +MEMA5TAB43 PO; +RIVA1PAT TD; +TOPI100T PO; +TRZ50T PO
[2021-07-26 19:58] VITALS: BP 64/39
--- NOTE | 2021-07-26 20:02 | ED General ---
General Stated Complaint: COVID + Source of Information: EMS Exam Limitations: No Limitations (VIDAL SALAZAR APRN) History of Present Illness Date Seen by Provider: Jul 26, 2021 Time Seen by Provider: 19:57 Initial Comments to ER by EMS from [facility] [place] with reports of hypoxia. EMS arrived and was unable to establish IV access. Her oxygen saturation was in the 60% range. She was loaded and transported to the hospital full CODE STATUS. She is known to be Covid positive.History of alzheimers, bipolar disorder, nonverbal, COPD, CHF. Timing/Duration: 1-2 Days, Other Severity: Moderate Associated Systoms: Denies Symptoms (VIDAL SALAZAR APRN) Allergies and Home Medications Allergies Coded Allergies: olanzapine (Verified Allergy, Unknown, 09/23/08) Patient Home Medication List Home Medication List Reviewed: Yes (VIDAL SALAZAR APRN) Cholecalciferol (Vitamin D3) (Vitamin D3) 1,000 Unit Capsule, 2,000 UNIT PO DAILY, (Reported) Entered as Reported by: KIRTI MCKINNEY on 04/18/17 1125 Clonazepam (Klonopin) 0.5 Mg Tablet, 0.5 MG PO TID, (Reported) Entered as Reported by: KIRTI MCKINNEY on 04/18/17 1125 Escitalopram Oxalate (Lexapro) 10 Mg Tablet, 10 MG PO DAILY, (Reported) Entered as Reported by: FARHAN WYATT on 12/01/10 0936 Lactulose (Lactulose) 20 Gm/30 Ml Solution, 30 ML PO BID, (Reported) Entered as Reported by: KIRTI MCKINNEY on 04/18/17 112 Levothyroxine Sodium (Levothyroxine Sodium) 150 Mcg Tablet, 150 MCG PO DAILY, (Reported) Entered as Reported by: KIRTI MCKINNEY on 04/18/17 1125 Lurasidone HCl (Latuda) 40 Mg Tablet, 40 MG PO BID, (Reported) Entered as Reported by: KIRTI MCKINNEY on 04/18/17 1125 Magnesium Hydroxide (Milk of Magnesia) 400 Mg/5 Ml Oral.susp, 30 ML PO DAILY PRN for CONSTIPATION-7TH LINE, (Reported) Entered as Reported by: KIRTI MCKINNEY on 04/18/17 1125 Melatonin (Melatonin) 3 Mg Tablet, 3 MG PO HS, (Reported) Entered as Reported by: KIRTI MCKINNEY on 04/18/17 1125 Memantine HCl (Memantine HCl) 5 Mg Tablet, 5 MG PO BID, (Reported) Entered as Reported by: KIRTI MCKINNEY on 04/18/17 112 Rivastigmine (Exelon) 4.6 Mg Patch, 4.6 MG TD DAILY, (Reported) Entered as Reported by: KIRTI MCKINNEY on 04/18/17 112 Simvastatin (Simvastatin) 40 Mg Tablet, 40 MG PO 1700, (Reported) Entered as Reported by: FARHAN WYATT on 12/01/10 0936 Topiramate (Topamax) 100 Mg Tablet, 100 MG PO BID, (Reported) Entered as Reported by: KIRTI MCKINNEY on 04/18/17 112 Trazodone HCl (Trazodone HCl) 50 Mg Tablet, 50 MG PO HS, (Reported) Entered as Reported by: KIRTI MCKINNEY on 04/18/17 112 Review of Systems Review of Systems Constitutional: see HPI, other (Unable to obtain) (VIDAL SALAZAR APRN) Past Urvvmwd-Bqcukp-Yqgrkl Hx Immunizations Up To Date PED Vaccines UTD: Yes (VIDAL SALAZAR APRN) Seasonal Allergies Seasonal Allergies: No (VIDAL SALAZAR APRN) Past Medical History Surgeries: Yes (HERNIA REPAIR) Abdominal Respiratory: Yes Chronic Bronchitis, COPD Cardiac: No High Cholesterol Neurological: Yes Dementia, Developmental Disorder Reproductive Disorders: No Sexually Transmitted Disease: No HIV/AIDS: No Genitourinary: No Gastrointestinal: Yes Abdominal Hernia, Gastroesophageal Reflux, Chronic Constipation Musculoskeletal: Yes Fractures Endocrine: Yes Hypothyroidsim HEENT: No Cancer: No Psychosocial: Yes (BIPOLAR, MENTALLY RETARDED) Sleep Difficulties, Bipolar, Depression Integumentary: No Blood Disorders: No Adverse Reaction/Blood Tranf: No (VIDAL SALAZAR APRN) Family Medical History Patient reports no known family medical history. No Pertinent Family Hx PT UNABLE TO REPORT ANY FAMILY HISTORY (VIDAL SALAZAR APRN) Physical Exam Vital Signs Vital Signs - First Documented 07/26/21 19:58 Temp 36.1 Pulse 86 Resp 37 B/P (MAP) 64/39 (47) Pulse Ox 80 O2 Delivery Nasal Cannula O2 Flow Rate 6.00 (RAS VIDAL DO) Vital Signs Capillary Refill : (VIDAL SALAZAR APRN) Height, Weight, BMI Height: 5'4.00" Weight: 232lbs. 0.3oz. 105.812035tn; 38.5 BMI Method:Estimated General Appearance: Severe Distress, Other (On arrival patient is actively dying, oxygen saturation in the 60% range with being bagged, dry mucous membranes, GCS with 4 points for eye, one-point for verbal, one-point for motor for a total of 6. Her blood pressure is 64/39. She is diffusely mottled with markedly delayed capillary refill. It was determined that intubation would be warranted but is not in Amanda's best interest. I called her power of research attorney Geoff Mathis who reports to me that patient was supposed to be getting a DNR order and not transported to the hospital and instead placed on comfort measures. As such we did not intubate and will proceed with comfort measures only.) Neck: Full Range of Motion, Normal Inspection Respiratory: No Accessory Muscle Use, No Respiratory Distress Cardiovascular: Regular Rate, Rhythm, Normal Peripheral Pulses Gastrointestinal: Normal Bowel Sounds, Non Tender, Soft Extremity: No Pedal Edema, Other (Markedly delayed capillary refill. Flexion contractures to left arm and both legs.) Neurologic/Psychiatric: Alert Skin: Normal Color, Warm/Dry (VIDAL SALAZAR APRN) Progress/Results/Core Measures Suspected Sepsis SIRS Temperature: Pulse: Respiratory Rate: Blood Pressure / Mean: (VIDAL SALAZAR APRN) Results/Orders Medications Given in ED Current Medications Medications Dose Ordered Sig/Aurelia Route Start Time Stop Time Status Last Admin Dose Admin Morphine Sulfate 5 mg ONCE PRN PO 07/26/21 20:00 07/26/21 21:34 DC 07/26/21 20:30 5 MG (YOUNGSHAHBAZA Naila DO) Vital Signs/I&O 07/26/21 19:58 Temp 36.1 Pulse 86 Resp 37 B/P (MAP) 64/39 (47) Pulse Ox 80 O2 Delivery Nasal Cannula O2 Flow Rate 6.00 (RAS VIDAL DO) Vital Signs/I&O Capillary Refill : (VIDAL SALAZAR APRN) Departure Communication (Admissions) 2049-Discussed my plan with Dr Tejeda, pts pcp. He just signed her DNR order. He is in agreement with initiating hospice. I then spoke with Kelsey Kaley Washington. She Called Kenan from [facility] pharmacy to get an emergency medication supply and would like me to fax information and facesheet to her and will be happy get the patient enrolled in hospice at the facility this evening. transferred back via EMS. I called the power of research attorney Geoff Mathis back and notified her of this plan and she is appreciative. (VIDAL SALAZAR APRN) Impression Primary Impression: Encounter for dying care Additional Impression: COVID-19 Disposition: 01 HOME, SELF-CARE Condition: Stable Departure-Patient Inst. Decision time for Depature: 20:50 (VDIAL SALAZAR APRN) Referrals: ILA TEJEDA DO (PCP/Family) Primary Care Physician Patient Instructions: NO INSTRUCTIONS GIVEN ATTENDING PHYSICIAN NOTE: I WAS PHYSICALLY PRESENT ER PHYSICIAN, WHEN THIS PATIENT WAS IN ER, BUT I WAS NOT INVOLVED IN ANY DECISION MAKING OR ANY CARE OF THIS PATIENT. (RAS VIDAL DO) VIDAL SALAZAR APRN Jul 26, 2021 20:02 RAS VIDAL DO Jul 27, 2021 02:15
[2021-07-26] MEDS: morphine (ROXINOL) 10 MG/0.5 ML oral conc 0.5 ML PO PRN (20:30)
== END 2021-07-26 21:34 | disposition home or self-care (01) ==
LOC: EDUNIT# 19:45 → ER 19:47
DX: U07.1 COVID-19 (principal); J44.9 Chronic obstructive pulmonary disease, unspecified; E03.9 Hypothyroidism, unspecified; E78.00 Pure hypercholesterolemia, unspecified; F31.9 Bipolar disorder, unspecified; Z79.890 Hormone replacement therapy; Z79.899 Other long term (current) drug therapy
CPT/HCPCS: 99283